=== PATIENT | female | born 1995 | race American Indian/Alaskan Native ===

== ENCOUNTER 2017-09-14 21:47 | Emergency (ER) | payer SELFPAY ==
[2017-09-14 22:50] LABS: Basophils % (Auto) 0.7 % (0.0-1.8); Eosinophils % (Auto) 1.4 % (0.0-4.3); Hematocrit 38.7 % (30.3-42.9); Hemoglobin 12.7 gm/dl (10.1-14.3); Mean Corpuscular HGB Conc 33 % (30-34); Mean Corpuscular Hemoglobin 29 pg (28-32); Mean Corpuscular Volume 87 fl (79-97); Platelet Count 350 K/mm3 (140-440); Red Blood Count 4.45 M/mm3 (3.65-5.03); Red Cell Distribution Width 15.1 % (13.2-15.2); White Blood Count 9.7 K/mm3 (4.5-11.0)
[2017-09-14 23:08] LABS: Alanine Aminotransferase 25 units/L (7-56); Albumin 3.9 g/dL (3.9-5); Albumin/Globulin Ratio 0.8 %; Alkaline Phosphatase 90 units/L (35-129); Anion Gap 17 mmol/L; BUN/Creatinine Ratio 14; Blood Urea Nitrogen 7 mg/dL (7-17); Carbon Dioxide 25 mmol/L (22-30); Chloride 100.5 mmol/L (98-107); Glucose 102 mg/dL (65-100); Lipase 19 units/L (13-60); Potassium 4.2 mmol/L (3.6-5.0); Sodium 138 mmol/L (137-145); Total Protein 8.6 g/dL (6.3-8.2)
[2017-09-14 23:14] LABS: Bilirubin,Urine NEG (Negative); Blood,Urine SM (Negative); Ketones,Urine NEG (Negative); Leukocyte Esterase,Urine TR (Negative); Mucus,Urine FEW /HPF; Nitrite,Urine NEG (Negative); Protein,Urine <15 mg/dL mg/dL (Negative); Urobilinogen,Urine < 2.0 mg/dL (<2.0)
--- NOTE | 2017-09-15 01:05 | Emergency Department Report ---
ED Abdominal Pain HPI - General Chief Complaint: Abdominal Pain Stated Complaint: BACK AND ABD PAIN Time Seen by Provider: 09/15/17 00:59 Source: patient Mode of arrival: Ambulatory Limitations: No Limitations - History of Present Illness Initial Comments: Patient is a 21-year-old female that presents to the emergency room with abdominal pain 10 weeks. Patient also states her LMP was 10 weeks ago. Patient has taken multiple home tests which have been negative. Patient denies diarrhea, chest pain and fever. Patient complains of nausea MD Complaint: abdominal pain -: Gradual, week(s) (over 10 weeks) Location: diffuse, LUQ, RUQ, LLQ, RLQ, epigastric Radiation: none Migration to: no migration Severity: moderate Severity scale (0 -10): 3 Quality: cramping Improves With: vomiting, rest Worsens With: eating, movement Context: other (LMP 10 weeks ago. ) Associated Symptoms: nausea, vomiting - Related Data LMP (females 10-50): other (10 weeks ago) Previous Rx's Medication Instructions Recorded Last Taken Type Pnv95/Ferrous Fumarate/FA 1 each PO QDAY #90 tablet 09/11/14 Unknown Rx [ Vitamins] Promethazine [Phenergan] 25 mg PO Q6H PRN #30 tablet 09/11/14 Unknown Rx Azithromycin [Zithromax ORAL PWDR] 1 gm PO ONCE #2 packet 03/29/15 Unknown Rx metroNIDAZOLE [Flagyl] 500 mg PO BID #10 tablet 03/29/15 Unknown Rx Fluticasone [Flonase] 1 spray NS QDAY #1 bottle 09/21/15 Unknown Rx Penicillin Vk [Veetids TAB] 500 mg PO QID #28 tablet 09/21/15 Unknown Rx Ondansetron [Zofran Odt] 4 mg PO Q8HR PRN #20 tab.rapdis 09/15/17 Unknown Rx Allergies Allergy/AdvReac Type Severity Reaction Status Date / Time No Known Allergies Allergy Unverified 09/11/14 17:03 ED Review of Systems ROS: Stated complaint: BACK AND ABD PAIN Other details as noted in HPI Comment: All other systems reviewed and negative Constitutional: no symptoms reported Eyes: as per HPI ENT: as per HPI Respiratory: no symptoms reported, see HPI Cardiovascular: as per HPI Endocrine: no symptoms reported Gastrointestinal: as per HPI, abdominal pain, nausea, vomiting Musculoskeletal: as per HPI Skin: as per HPI Neurological: as per HPI Psychiatric: as per HPI Hematological/Lymphatic: as per HPI ED Past Medical Hx - Past Medical History Previous Medical History?: Yes Additional medical history: obesity - Surgical History Past Surgical History?: Yes Additional Surgical History: - 2011 - Social History Smoking Status: Never Smoker Substance Use Type: None - Medications Home Medications: Home Medications Medication Instructions Recorded Confirmed Last Taken Type Pnv95/Ferrous Fumarate/FA 1 each PO QDAY #90 tablet 09/11/14 Unknown Rx [ Vitamins] Promethazine [Phenergan] 25 mg PO Q6H PRN #30 tablet 09/11/14 Unknown Rx Azithromycin [Zithromax ORAL PWDR] 1 gm PO ONCE #2 packet 03/29/15 Unknown Rx metroNIDAZOLE [Flagyl] 500 mg PO BID #10 tablet 03/29/15 Unknown Rx Fluticasone [Flonase] 1 spray NS QDAY #1 bottle 09/21/15 Unknown Rx Penicillin Vk [Veetids TAB] 500 mg PO QID #28 tablet 09/21/15 Unknown Rx Ondansetron [Zofran Odt] 4 mg PO Q8HR PRN #20 tab.rapdis 09/15/17 Unknown Rx ED Physical Exam - General Limitations: No Limitations General appearance: alert, in no apparent distress - Head Head exam: Present: atraumatic, normocephalic - Eye Eye exam: Present: normal appearance - ENT ENT exam: Present: mucous membranes moist - Neck Neck exam: Present: normal inspection - Respiratory Respiratory exam: Present: normal lung sounds bilaterally. Absent: respiratory distress - Cardiovascular Cardiovascular Exam: Present: regular rate, normal rhythm. Absent: systolic murmur, diastolic murmur, rubs, gallop - GI/Abdominal GI/Abdominal exam: Present: soft, tenderness (mild generalized tenderness. ), normal bowel sounds - Extremities Exam Extremities exam: Present: normal inspection - Back Exam Back exam: Present: normal inspection - Neurological Exam Neurological exam: Present: alert, oriented X3 - Psychiatric Psychiatric exam: Present: normal affect, normal mood - Skin Skin exam: Present: warm, dry, intact, normal color. Absent: rash ED Course Vital Signs 09/14/17 09/15/17 21:50 02:50 Temperature 98.1 F Pulse Rate 99 H Respiratory 18 18 Rate Blood Pressure 169/85 [Right] O2 Sat by Pulse 100 97 Oximetry ED Medical Decision Making - Lab Data Result diagrams: 09/14/17 22:01 09/14/17 22:01 HCG negative - Radiology Data Radiology results: report reviewed No acute findings on CT scan of abdomen and pelvis. - Medical Decision Making Patient stable for discharge, CT negative and all labs negative - Differential Diagnosis . abd pain. constipation Critical care attestation.: If time is entered above; I have spent that time in minutes in the direct care of this critically ill patient, excluding procedure time. ED Disposition Clinical Impression: Abdominal pain, Amenorrhea, Nausea Disposition: TO HOME OR SELFCARE Is pt being admited?: No Does the pt Need Aspirin: No Condition: Stable Instructions: Abdominal Pain (ED) Additional Instructions: Patient to see TYPING POOL SUPERVISOR and primary care within 3-5 days. Patient to increase water. Patient to take ibuprofen Tylenol when necessary for pain. Patient to return to ED if condition worsens. Prescriptions: Ondansetron [Zofran Odt] 4 mg PO Q8HR PRN #20 tab.rapdis PRN Reason: Nausea And Vomiting Referrals: PRIMARY CARE,MD [Primary Care Provider] - 3-5 Days Time of Disposition: 04:11
--- NOTE | 2017-09-15 03:21 | Cat Scan Report ---
FINAL REPORT EXAM: CT ABDOMEN PELVIS WO CON HISTORY: abd pain TECHNIQUE: Routine axial imaging was obtained of the abdomen and pelvis without oral or IV contrast. Sagittal and coronal reconstructions were reviewed. FINDINGS: The lung bases are clear. Pleural fluid is not seen. The liver, gallbladder, pancreas, spleen, and adrenal glands appear normal. The kidneys show no evidence of stones or hydronephrosis. The bowel loops are normal in caliber and course. The appendix appears normal. Free fluid is not seen. In the pelvis the uterus and bladder appear normal. The bones and soft tissues do not show any acute changes. IMPRESSION: No acute process in the abdomen pelvis.
[2017-09-15 06:01] VITALS: BP 117/73
== END 2017-09-15 04:45 | disposition home or self-care (01) ==
LOC: ED 21:47
DX: N91.2 Amenorrhea, unspecified (principal); R10.84 Generalized abdominal pain; R11.2 Nausea with vomiting, unspecified; E66.9 Obesity, unspecified
CPT/HCPCS: 36415; 74176; 80053; 81001; 83690; 84703; 85025

== ENCOUNTER 2017-10-26 16:14 | Emergency (ER) | payer MEDICAID, OTHER ==
[2017-10-26] MEDS ORDERED: XYLOCAINE 2% INFILTRATI ONE ×2 (19:17→19:18)
[2017-10-26] MEDS ORDERED: XYLOCAINE 1% MPF 5 mL INFILTRATI ONE (19:23)
[2017-10-26] MEDS ORDERED: NORCO 7.5/325 PO ONE (19:23)
[2017-10-26] MEDS ORDERED: ROCEPHIN IM ONE (19:23)
--- NOTE | 2017-10-26 19:28 | Emergency Department Report ---
Abscess Boil HPI - HPI Chief Complaint: Wound/Laceration Stated Complaint: BOIL Time Seen by Provider: 10/26/17 19:14 Duration: 5 Days Location: Sacral/Pilonidal Severity: Mild History: Yes Pain, Yes Purulent Drainage, Yes Previous History, No Fever, No Numbness, No Foreign Body, No Insect Bite HPI: here w boil bet buttox (high cephalic). for several days. also cough and congestion for 4 days. medicaid just kicked in. vss. non ill. non toxic. no fever. ambulatory. taking po Home Medications: Previous Rx's Medication Instructions Recorded Last Taken Type Cephalexin [Keflex] 500 mg PO Q12HR #20 cap 10/26/17 Unknown Rx traMADol [Ultram] 50 mg PO Q6HR PRN #12 tablet 10/26/17 Unknown Rx Allergies/Adverse Reactions: Allergies Allergy/AdvReac Type Severity Reaction Status Date / Time No Known Allergies Allergy Verified 10/26/17 17:49 ED Review of Systems ROS: Stated complaint: BOIL Other details as noted in HPI Comment: All other systems reviewed and negative Respiratory: cough Skin: other (abscess at buttocks fold) ED Past Medical Hx - Past Medical History Previous Medical History?: No Additional medical history: obesity - Surgical History Past Surgical History?: No Additional Surgical History: - 2011 - Social History Smoking Status: Never Smoker Substance Use Type: None - Medications Home Medications: Home Medications Medication Instructions Recorded Confirmed Last Taken Type Cephalexin [Keflex] 500 mg PO Q12HR #20 cap 10/26/17 Unknown Rx traMADol [Ultram] 50 mg PO Q6HR PRN #12 tablet 10/26/17 Unknown Rx ED Abscess Boil Physical Exam - Exam General: Vital signs noted. No distress. Alert and acting appropriately. Size: 3 cm Exam: Yes Tenderness, Yes Fluctuance, Yes Surrounding Cellulites/Erythema, Yes Normal Neurologic Exam, Yes Normal Circulation, No Lymphangitis, No Crepitation , No Heart Murmur Exam: cough I & D Note - I & D Note I & D Note: i/d. lido 2% 2 ml. mod amount serosang drainage ED Course Vital Signs 10/26/17 17:49 Temperature 97.9 F Respiratory 16 Rate Blood Pressure 123/60 O2 Sat by Pulse 97 Oximetry Critical care attestation.: If time is entered above; I have spent that time in minutes in the direct care of this critically ill patient, excluding procedure time. ED Medical Decision Making - Medical Decision Making see note - Differential Diagnosis abscess ED Disposition Clinical Impression: Abscess, URTI (acute upper respiratory infection) Disposition: TO HOME OR SELFCARE Is pt being admited?: No Does the pt Need Aspirin: No Condition: Stable Instructions: Abscess (ED), Upper Respiratory Infection (ED) Additional Instructions: rest fluids motrin or tylenol for fever meds as ordered today epsom salt soaks in bath tub for 20 minutes three times per day follow up with PCP (below) on Monday for a recheck remember these can be recurrent and you may need to see general surg to debrid this in surgery return to ER for fever > 101 that will not come down with motrin or tylenol Referrals: NESTOR MISHRA MD [Staff Physician] - 3-5 Days Time of Disposition: 19:26
[2017-10-26 20:01] VITALS: BP 149/91
== END 2017-10-26 20:08 | disposition home or self-care (01) ==
LOC: ED 16:14
DX: L02.31 Cutaneous abscess of buttock (principal); J06.9 Acute upper respiratory infection, unspecified
CPT/HCPCS: 10060; 96372; 99282; J0696

== ENCOUNTER 2018-05-15 02:26 | Emergency (ER) | payer MEDICAID ==
[2018-05-15] MEDS ORDERED: NACL 0.9% 1000 ML 1,000 ML IV ONE (02:36)
[2018-05-15 03:16] LABS: Basophils # (Auto) 0.1 K/mm3 (0.0-0.1); Basophils % (Auto) 0.8 % (0.0-1.8); Eosinophils # (Auto) 0.1 K/mm3 (0.0-0.4); Eosinophils % (Auto) 1.3 % (0.0-4.3); Hematocrit 35.9 % (30.3-42.9); Lymphocytes % (Auto) 40.1 % (13.4-35.0); Mean Corpuscular HGB Conc 34 % (30-34); Mean Corpuscular Hemoglobin 29 pg (28-32); Mean Corpuscular Volume 85 fl (79-97); Monocytes # (Auto) 0.5 K/mm3 (0.0-0.8); Monocytes % (Auto) 4.9 % (0.0-7.3); Platelet Count 373 K/mm3 (140-440); Red Blood Count 4.23 M/mm3 (3.65-5.03); Red Cell Distribution Width 15.7 % (13.2-15.2)
[2018-05-15 03:21] LABS: Bilirubin,Urine NEG (Negative); Blood,Urine LG (Negative); Color,Urine Yellow (Yellow); Protein,Urine <15 mg/dL mg/dL (Negative); Urobilinogen,Urine < 2.0 mg/dL (<2.0)
[2018-05-15 03:26] LABS: RBC,Urine > 182.0 /HPF (0.0-6.0)
[2018-05-15 03:32] LABS: Alanine Aminotransferase 22 units/L (7-56); Albumin 4.1 g/dL (3.9-5); BUN/Creatinine Ratio 17; Blood Urea Nitrogen 10 mg/dL (7-17); Calcium 9.6 mg/dL (8.4-10.2); Hemolysis Index 3; Lipase 22 units/L (13-60)
[2018-05-15] MEDS ORDERED: TORADOL IM ONE (09:42)
--- NOTE | 2018-05-15 09:45 | Emergency Department Report ---
ED Abdominal Pain HPI - General Chief Complaint: Abdominal Pain Stated Complaint: ABDOMINAL PAIN Time Seen by Provider: 05/15/18 09:37 Source: patient Mode of arrival: Ambulatory Limitations: No Limitations - History of Present Illness Initial Comments: Since 22 years old female with no significant past medical history. Patient presented to the ER complaining of bilateral flank pain and suprapubic pain associated with pressure when she urinated. Patient stated that pain is on and off for a week now. She denied any nausea or vomiting or fever. Patient also stated that she's been having on and off vaginal bleeding for the Ross 3 weeks. MD Complaint: abdominal pain Severity scale (0 -10): 10 - Related Data Previous Rx's Medication Instructions Recorded Last Taken Type Cephalexin [Keflex] 500 mg PO Q12HR #20 cap 10/26/17 Unknown Rx traMADol [Ultram] 50 mg PO Q6HR PRN #12 tablet 10/26/17 Unknown Rx Allergies Allergy/AdvReac Type Severity Reaction Status Date / Time No Known Allergies Allergy Verified 10/26/17 17:49 ED Review of Systems ROS: Stated complaint: ABDOMINAL PAIN Other details as noted in HPI Comment: All other systems reviewed and negative Constitutional: denies: chills, fever Respiratory: denies: cough Cardiovascular: denies: chest pain, palpitations Endocrine: denies: excessive sweating Gastrointestinal: abdominal pain. denies: nausea, vomiting, diarrhea, constipation, hematemesis, melena, hematochezia Genitourinary: urgency, dysuria, frequency, hematuria, abnormal menses. denies : discharge Neurological: denies: headache, weakness, numbness, paresthesias, confusion, abnormal gait ED Past Medical Hx - Past Medical History Additional medical history: obesity - Surgical History Additional Surgical History: - 2012 - Social History Smoking Status: Never Smoker Substance Use Type: None - Medications Home Medications: Home Medications Medication Instructions Recorded Confirmed Last Taken Type Cephalexin [Keflex] 500 mg PO Q12HR #20 cap 10/26/17 Unknown Rx traMADol [Ultram] 50 mg PO Q6HR PRN #12 tablet 10/26/17 Unknown Rx ED Physical Exam - General Limitations: No Limitations General appearance: alert, in no apparent distress - Head Head exam: Present: atraumatic, normocephalic, normal inspection - ENT ENT exam: Present: normal exam, normal orophraynx, mucous membranes moist - Neck Neck exam: Present: normal inspection, full ROM. Absent: tenderness - Respiratory Respiratory exam: Present: normal lung sounds bilaterally. Absent: respiratory distress, wheezes, rales, rhonchi, stridor - Cardiovascular Cardiovascular Exam: Present: regular rate, normal rhythm, normal heart sounds - GI/Abdominal GI/Abdominal exam: Present: soft, normal bowel sounds. Absent: distended, tenderness, guarding, rebound, rigid, organomegaly, mass, bruit, pulsatile mass , hernia - Extremities Exam Extremities exam: Present: normal inspection, full ROM, normal capillary refill - Back Exam Back exam: Present: normal inspection, full ROM. Absent: tenderness, CVA tenderness (R), CVA tenderness (L), muscle spasm, paraspinal tenderness, vertebral tenderness - Neurological Exam Neurological exam: Present: alert, oriented X3, CN II-XII intact, normal gait, reflexes normal - Skin Skin exam: Present: warm, intact, normal color ED Course Vital Signs 05/15/18 05/15/18 05/15/18 02:31 08:55 10:14 Temperature 98.5 F 98.1 F Pulse Rate 102 H 82 Respiratory 16 20 18 Rate Blood Pressure 138/67 101/56 O2 Sat by Pulse 99 98 99 Oximetry ED Medical Decision Making - Lab Data Result diagrams: 05/15/18 03:00 05/15/18 03:00 - Radiology Data Radiology results: report reviewed Referring Physician: LAUREL VALLES Patient Name: DAI ANTUNEZ Date of : 1995 Sex: Female Report Date: 2018-05-15 Report Status: Finalized Findings [facility] [address] [place] [address] Cat Scan Report Signed Patient: DAI ANTUNEZ MR#: [id number] : 1995 Acct:[id number] Age/Sex: 22 / F ADM Date: 05/15/18 Loc: ED Attending Dr: Ordering Physician: LAUREL VALLES Date of Service: 05/15/18 Procedure(s): CT abdomen pelvis wo con Accession Number(s): [id number] cc: LAUREL VALLES CT ABDOMEN PELVIS WITHOUT CONTRAST: HISTORY: Abdominal pain, bilateral flank pain. COMPARISON: 09/15/17. TECHNIQUE: Helical CT in 1.25mm intervals without IV contrast. Sagittal and coronal reconstructions. FINDINGS: Lung bases: Normal. Liver: Normal. Biliary system: Normal. Pancreas: Normal. Spleen: Normal. Kidneys/ureters/bladder: Within normal limits. No convincing nephrolithiasis is appreciated. Adrenal glands: Normal. Aorta: Normal. Intestines: Normal. Appendix: Normal. Pelvic viscera: Normal. Ascites: None. Adenopathy: None. Musculoskeletal: Intact. Mild pseudarthrosis on the left side of L5 and the left superior sacrum is unchanged. IMPRESSION: Unremarkable CT scan of the abdomen and pelvis without contrast. No acute process noted. Transcribed By: TTR Dictated By: SAI MONTAÑO JR, MD Electronically Authenticated By: SAI MONTAÑO JR, MD Signed Date/Time: 05/15/18 1017 DD/ 1015 TD/TT: 05/15/18 1017 Critical care attestation.: If time is entered above; I have spent that time in minutes in the direct care of this critically ill patient, excluding procedure time. ED Disposition Clinical Impression: Abdominal pain, Dysuria Disposition: DC-01 TO HOME OR SELFCARE Is pt being admited?: No Condition: Stable Instructions: Abdominal Pain (ED), Dysuria (ED) Referrals: ALIVIA MONTERROSO MD [Primary Care Provider] - 3-5 Days
[2018-05-15] MEDS ORDERED: ZOFRAN ONE (10:40)
--- NOTE | 2018-05-15 10:40 | Cat Scan Report ---
CT ABDOMEN PELVIS WITHOUT CONTRAST: HISTORY: Abdominal pain, bilateral flank pain. COMPARISON: 09/15/17. TECHNIQUE: Helical CT in 1.25mm intervals without IV contrast. Sagittal and coronal reconstructions. FINDINGS: Lung bases: Normal. Liver: Normal. Biliary system: Normal. Pancreas: Normal. Spleen: Normal. Kidneys/ureters/bladder: Within normal limits. No convincing nephrolithiasis is appreciated. Adrenal glands: Normal. Aorta: Normal. Intestines: Normal. Appendix: Normal. Pelvic viscera: Normal. Ascites: None. Adenopathy: None. Musculoskeletal: Intact. Mild pseudarthrosis on the left side of L5 and the left superior sacrum is unchanged. IMPRESSION: Unremarkable CT scan of the abdomen and pelvis without contrast. No acute process noted.
[2018-05-15] MEDS ORDERED: ZOFRAN IM ONE (10:52)
[2018-05-15 12:09] VITALS: BP 132/72
== END 2018-05-15 12:07 | disposition home or self-care (01) ==
LOC: ED 02:26
DX: R10.30 Lower abdominal pain, unspecified (principal); R30.0 Dysuria
CPT/HCPCS: 36415; 74176; 80053; 81001; 83690; 84703; 85025; 96372; 99284; J1885; J2405

== ENCOUNTER 2018-06-16 03:19 | Emergency (ER) | payer MEDICAID ==
[2018-06-16] MEDS ORDERED: NORCO 5/325 PO ONE (07:05)
[2018-06-16 08:21] LABS: Basophils # (Auto) 0.1 K/mm3 (0.0-0.1); Eosinophils # (Auto) 0.2 K/mm3 (0.0-0.4); Eosinophils % (Auto) 1.6 % (0.0-4.3); Hematocrit 33.7 % (30.3-42.9); Hemoglobin 11.1 gm/dl (10.1-14.3); Lymphocytes # (Auto) 4.1 K/mm3 (1.2-5.4); Lymphocytes % (Auto) 36.1 % (13.4-35.0); Mean Corpuscular HGB Conc 33 % (30-34); Mean Corpuscular Hemoglobin 29 pg (28-32); Mean Corpuscular Volume 86 fl (79-97); Monocytes # (Auto) 0.4 K/mm3 (0.0-0.8); Monocytes % (Auto) 3.7 % (0.0-7.3); Platelet Count 392 K/mm3 (140-440); Red Blood Count 3.89 M/mm3 (3.65-5.03); Red Cell Distribution Width 16.1 % (13.2-15.2)
[2018-06-16 08:32] LABS: BUN/Creatinine Ratio 22; Blood Urea Nitrogen 13 mg/dL (7-17); Calcium 9.6 mg/dL (8.4-10.2); Hemolysis Index 49
[2018-06-16 09:28] LABS: Bilirubin,Urine NEG (Negative); Blood,Urine LG (Negative); Color,Urine Yellow (Yellow); Mucus,Urine 1+ /HPF; Urobilinogen,Urine < 2.0 mg/dL (<2.0)
[2018-06-16 09:33] LABS: RBC,Urine > 182.0 /HPF (0.0-6.0)
[2018-06-16 09:35] LABS: HCG Qualitative,Urine Negative (Negative)
--- NOTE | 2018-06-16 10:14 | Emergency Department Report ---
ED General Adult HPI - General Chief complaint: Abdominal Pain Stated complaint: PELVIC PAIN Time Seen by Provider: 06/16/18 06:59 Source: patient Mode of arrival: Ambulatory Limitations: No Limitations - History of Present Illness Initial comments: 22-year-old female who brought her child in for protracted vomiting. Her child is autistic. [facility] ultimately was [facility]. Since she was bringing her child she decided to come to the emergency department. She states that she has had bilateral pelvic pain for well more than a month. She states she's not been able to get in to see her SHAKER REPAIRER doctor. She doesn't report any acute change. She states that she has had intermittent bleeding for over a month. She does not report fever chills or any dysuria or discharge. She was seen at this facility proximally one month ago. I do note that at that time in April she had a CT of her abdomen and pelvis which was normal. She was found to have hematuria which I presume was likely attributed to menses. -: month(s) Severity scale (0 -10): 4 Quality: aching Consistency: intermittent Improves with: none Worsens with: none Associated Symptoms: denies other symptoms Treatments Prior to Arrival: none - Related Data Previous Rx's Medication Instructions Recorded Last Taken Type cephALEXin [Keflex] 500 mg PO Q12HR #20 cap 10/26/17 Unknown Rx traMADol [Ultram] 50 mg PO Q6HR PRN #12 tablet 10/26/17 Unknown Rx Ciprofloxacin HCl [Ciprofloxacin 500 mg PO Q12H #14 tab 05/15/18 Unknown Rx TAB] Ondansetron [Zofran Odt] 4 mg PO Q8HR PRN #14 tab.rapdis 05/15/18 Unknown Rx traMADol [Ultram] 50 mg PO Q6HR PRN #14 tablet 05/15/18 Unknown Rx Nitrofurantoin Monohyd/M-Cryst 100 mg PO BID #14 capsule 06/16/18 Unknown Rx [Macrobid 100 mg Capsule] traMADol [Ultram 50 MG tab] 50 mg PO Q6HR PRN #10 tablet 06/16/18 Unknown Rx Allergies Allergy/AdvReac Type Severity Reaction Status Date / Time No Known Allergies Allergy Verified 10/26/17 17:49 ED Review of Systems ROS: Stated complaint: PELVIC PAIN Other details as noted in HPI Constitutional: denies: chills, fever Eyes: denies: eye pain, eye discharge, vision change ENT: denies: ear pain, throat pain Respiratory: denies: cough, shortness of breath, wheezing Cardiovascular: denies: chest pain, palpitations Endocrine: no symptoms reported Gastrointestinal: denies: abdominal pain, nausea, diarrhea Genitourinary: as per HPI. denies: urgency, dysuria, discharge Musculoskeletal: denies: back pain, joint swelling, arthralgia Skin: denies: rash, lesions Neurological: denies: headache, weakness, paresthesias Psychiatric: denies: anxiety, depression Hematological/Lymphatic: denies: easy bleeding, easy bruising ED Past Medical Hx - Past Medical History Previous Medical History?: No Additional medical history: obesity - Surgical History Past Surgical History?: Yes Additional Surgical History: - 2012 - Social History Smoking Status: Never Smoker Substance Use Type: None - Medications Home Medications: Home Medications Medication Instructions Recorded Confirmed Last Taken Type cephALEXin [Keflex] 500 mg PO Q12HR #20 cap 10/26/17 Unknown Rx traMADol [Ultram] 50 mg PO Q6HR PRN #12 tablet 10/26/17 Unknown Rx Ciprofloxacin HCl [Ciprofloxacin 500 mg PO Q12H #14 tab 05/15/18 Unknown Rx TAB] Ondansetron [Zofran Odt] 4 mg PO Q8HR PRN #14 tab.rapdis 05/15/18 Unknown Rx traMADol [Ultram] 50 mg PO Q6HR PRN #14 tablet 05/15/18 Unknown Rx Nitrofurantoin Monohyd/M-Cryst 100 mg PO BID #14 capsule 06/16/18 Unknown Rx [Macrobid 100 mg Capsule] traMADol [Ultram 50 MG tab] 50 mg PO Q6HR PRN #10 tablet 06/16/18 Unknown Rx ED Physical Exam - General Limitations: No Limitations General appearance: alert, in no apparent distress - Head Head exam: Present: atraumatic, normocephalic - Eye Eye exam: Present: normal appearance. Absent: scleral icterus - ENT ENT exam: Present: mucous membranes moist - Neck Neck exam: Present: normal inspection - Respiratory Respiratory exam: Present: normal lung sounds bilaterally. Absent: respiratory distress - Cardiovascular Cardiovascular Exam: Present: regular rate, normal rhythm. Absent: systolic murmur, diastolic murmur, rubs, gallop - GI/Abdominal GI/Abdominal exam: Present: soft, tenderness (some discomfort to palpation in the very lower aspect of the bilateral lower quadrants), normal bowel sounds. Absent: distended, guarding, rebound, rigid - Extremities Exam Extremities exam: Present: normal inspection - Back Exam Back exam: Present: normal inspection. Absent: CVA tenderness (R), CVA tenderness (L), muscle spasm, paraspinal tenderness, vertebral tenderness - Neurological Exam Neurological exam: Present: alert, oriented X3, CN II-XII intact. Absent: motor sensory deficit - Psychiatric Psychiatric exam: Present: normal affect, normal mood - Skin Skin exam: Present: warm, dry, intact, normal color. Absent: rash ED Course Vital Signs 06/16/18 06/16/18 06/16/18 03:36 07:09 07:14 Temperature 98.3 F Pulse Rate 88 Respiratory 18 20 20 Rate Blood Pressure 134/58 O2 Sat by Pulse 100 98 Oximetry - Reevaluation(s) Reevaluation #1: Patient arrest. There is comfortably. She did not complain of any substantial pain in the emergency department. She is referred back to EXTRUSION SUPERVISOR. A urine is cultured. She was started on Macrobid. 06/16/18 10:17 ED Medical Decision Making - Lab Data Result diagrams: 06/16/18 08:01 06/16/18 08:01 Critical care attestation.: If time is entered above; I have spent that time in minutes in the direct care of this critically ill patient, excluding procedure time. ED Disposition Clinical Impression: Dysfunctional uterine bleeding UTI (urinary tract infection) Qualifiers: Urinary tract infection type: site unspecified Hematuria presence: with hematuria Qualified Code(s): N39.0 - Urinary tract infection, site not specified Disposition: TO HOME OR SELFCARE Is pt being admited?: No Does the pt Need Aspirin: No Condition: Stable Instructions: Dysfunctional Uterine Bleeding (ED), Urinary Tract Infection in Women (ED), Chronic Pelvic Pain in Women (ED), Abdominal Pain (ED) Additional Instructions: It is uncertain as to whether or not you have a urinary tract infection. In such cases we will do a urine culture which will be ready in 3 days. I have begun an antibiotic. He should follow up with your fixing carpenter on this and your irregular periods and in general. To the emergency department fever chills or any acute pain or problem. Prescriptions: Nitrofurantoin Monohyd/M-Cryst [Macrobid 100 mg Capsule] 100 mg PO BID #14 capsule traMADol [Ultram 50 MG tab] 50 mg PO Q6HR PRN #10 tablet PRN Reason: Pain Referrals: usual, EXTRUSION SUPERVISOR [Other] - 3-5 Days PRIMARY CARE,MD [Primary Care Provider] - 2-3 Days Time of Disposition: 10:17
[2018-06-16 11:34] VITALS: BP 130/80
== END 2018-06-16 10:40 | disposition home or self-care (01) ==
LOC: ED 03:19
DX: N39.0 Urinary tract infection, site not specified (principal); N93.8 Other specified abnormal uterine and vaginal bleeding
CPT/HCPCS: 36415; 80048; 81001; 81025; 85025; 87086; 99283

== ENCOUNTER 2019-03-25 20:36 | Emergency (ER) | payer MEDICAID, OTHER ==
--- NOTE | 2019-03-25 21:19 | Emergency Department Report ---
Blank Doc - Documentation Documentation: This is a 23-year-old female that presents with right elbow pain. Patient den ies any shoulder pain or left arm pain. Denies any other complaints or injuries. This initial assessment/diagnostic orders/clinical plan/treatment(s) is/are subject to change based on patient's health status, clinical progression and re- assessment by fellow clinical providers in the ED. Further treatment and workup at subsequent clinical providers discretion. Patient/guardians urged not to rhiannon pe from the ED as their condition may be serious if not clinically assessed and managed. Initial orders include: 1- Patient sent to [facility] for further evaluation and treatment 2- xray
[2019-03-25 21:21] VITALS: BP 150/85
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
[2019-03-25] MEDS ORDERED: TYLENOL PO ONE (22:39)
[2019-03-25] MEDS ORDERED: IBUPROFEN PO ONE (22:39)
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
== END 2019-03-25 23:37 | disposition home or self-care (01) ==
LOC: ED 20:36
DX: S56.911A Strain of unspecified muscles, fascia and tendons at forearm level, right arm, initial encounter (principal); S53.401A Unspecified sprain of right elbow, initial encounter; E66.01 Morbid (severe) obesity due to excess calories; Z68.43 Body mass index [BMI] 50.0-59.9, adult; V89.2XXA Person injured in unspecified motor-vehicle accident, traffic, initial encounter; Y93.89 Activity, other specified; Y92.488 Other paved roadways as the place of occurrence of the external cause; Y99.8 Other external cause status
CPT/HCPCS: 99283

== ENCOUNTER 2019-10-08 09:52 | Emergency (ER) | payer MEDICAID ==
[2019-10-08 10:19] VITALS: BP 122/75
--- NOTE | 2019-10-08 11:16 | XRay Report ---
Right ankle-3 views Right foot-3 views INDICATION: Right ankle pain and swelling. COMPARISON: None. IMPRESSION: Mild soft tissue swelling about the ankle and dorsum of the forefoot with no acute fract ure or malalignment identified in the ankle or foot. Mild enthesopathic change at the calcaneal tuber osity. No significant DJD. Signer Name: Dallas Morales MD Signed: 10/08/2019 11:04 AM Workstation Name: [id number]
--- NOTE | 2019-10-08 11:55 | XRay Report ---
RIGHT KNEE 3 VIEWS INDICATION / CLINICAL INFORMATION: pain after fall. COMPARISON: None available. FINDINGS: No fracture or other skeletal abnormality. No evidence of hemarthrosis or significant joint effusion. Signer Name: Isidro Rodriguez MD Signed: 10/08/2019 11:50 AM Workstation Name: [id number]
[2019-10-08] MEDS ORDERED: IBUPROFEN 800 MG TAB PO ONE (12:13)
--- NOTE | 2019-10-08 12:25 | Emergency Department Report ---
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 Patient states she has pain in the right ankle foot and lateral knee. Patient states that there was no head injury or loss of consciousness. Patient states she cannot bear weight secondary to pain. Patient's pain is a 8 out 10 in severity and is worse with movement bear weight and is better with rest. Severity scale (0 -10): 10 - Related Data Previous Rx's Medication Instructions Recorded Last Taken Type cephALEXin [Keflex] 500 mg PO Q12HR #20 cap 10/26/17 Unknown Rx traMADoL [Ultram] 50 mg PO Q6HR PRN #12 tablet 10/26/17 Unknown Rx Ciprofloxacin HCl [Ciprofloxacin 500 mg PO Q12H #14 tab 05/15/18 Unknown Rx TAB] Ondansetron [Zofran Odt] 4 mg PO Q8HR PRN #14 tab.rapdis 05/15/18 Unknown Rx traMADoL [Ultram] 50 mg PO Q6HR PRN #14 tablet 05/15/18 Unknown Rx Nitrofurantoin Monohyd/M-Cryst 100 mg PO BID #14 capsule 06/16/18 Unknown Rx [Macrobid 100 mg Capsule] traMADoL [Ultram 50 MG tab] 50 mg PO Q6HR PRN #10 tablet 06/16/18 Unknown Rx Cyclobenzaprine [Flexeril] 10 mg PO Q8H PRN #15 tablet 03/25/19 Unknown Rx Ibuprofen [Motrin] 800 mg PO Q8HR PRN #20 tablet 03/25/19 Unknown Rx Ibuprofen [Motrin 800 MG tab] 800 mg PO Q8HR PRN #10 tablet 10/08/19 Unknown Rx traMADoL [Ultram] 50 mg PO Q6HR PRN #12 tablet 10/08/19 Unknown Rx Allergies Allergy/AdvReac Type Severity Reaction Status Date / Time No Known Allergies Allergy Verified 10/26/17 17:49 ED Review of Systems ROS: Stated complaint: RT ANKLE INJURY Other details as noted in HPI Comment: All other systems reviewed and negative ED Past Medical Hx - Past Medical History Previous Medical History?: No Additional medical history: obesity - Surgical History Past Surgical History?: Yes Additional Surgical History: - 2012 - Social History Smoking Status: Never Smoker Substance Use Type: None - Medications Home Medications: Home Medications Medication Instructions Recorded Confirmed Last Taken Type cephALEXin [Keflex] 500 mg PO Q12HR #20 cap 10/26/17 Unknown Rx traMADoL [Ultram] 50 mg PO Q6HR PRN #12 tablet 10/26/17 Unknown Rx Ciprofloxacin HCl [Ciprofloxacin 500 mg PO Q12H #14 tab 05/15/18 Unknown Rx TAB] Ondansetron [Zofran Odt] 4 mg PO Q8HR PRN #14 tab.rapdis 05/15/18 Unknown Rx traMADoL [Ultram] 50 mg PO Q6HR PRN #14 tablet 05/15/18 Unknown Rx Nitrofurantoin Monohyd/M-Cryst 100 mg PO BID #14 capsule 06/16/18 Unknown Rx [Macrobid 100 mg Capsule] traMADoL [Ultram 50 MG tab] 50 mg PO Q6HR PRN #10 tablet 06/16/18 Unknown Rx Cyclobenzaprine [Flexeril] 10 mg PO Q8H PRN #15 tablet 03/25/19 Unknown Rx Ibuprofen [Motrin] 800 mg PO Q8HR PRN #20 tablet 03/25/19 Unknown Rx Ibuprofen [Motrin 800 MG tab] 800 mg PO Q8HR PRN #10 tablet 10/08/19 Unknown Rx traMADoL [Ultram] 50 mg PO Q6HR PRN #12 tablet 10/08/19 Unknown Rx ED Physical Exam - General Limitations: No Limitations General appearance: alert, in no apparent distress - Head Head exam: Present: atraumatic, normocephalic - Eye Eye exam: Present: normal appearance, PERRL, EOMI - ENT ENT exam: Present: mucous membranes moist - Neck Neck exam: Present: normal inspection - Respiratory Respiratory exam: Present: normal lung sounds bilaterally. Absent: respiratory distress, wheezes, rales, rhonchi - Cardiovascular Cardiovascular Exam: Present: regular rate, normal rhythm. Absent: systolic murmur, diastolic murmur, rubs, gallop - GI/Abdominal GI/Abdominal exam: Present: soft, normal bowel sounds. Absent: distended, tenderness, guarding, rebound - Extremities Exam Extremities exam: Present: normal inspection - Expanded Lower Extremity Exam Right Hip exam: Present: normal inspection, full ROM Upper Leg exam: Present: normal inspection, full ROM Knee exam: Present: normal inspection, tenderness (patient has some tenderness to the area of the occipital fibula), abrasion Lower Leg exam: Present: normal inspection Ankle exam: Present: tenderness, swelling. Absent: full ROM Neuro vascular tendon exam: Present: no vascular compromise - Back Exam Back exam: Present: normal inspection - Neurological Exam Neurological exam: Present: alert, oriented X3 - Psychiatric Psychiatric exam: Present: normal affect, normal mood - Skin Skin exam: Present: warm, dry, intact, normal color. Absent: rash ED Course Vital Signs 10/08/19 10:17 Temperature 97.6 F Pulse Rate 107 H Respiratory 16 Rate Blood Pressure 122/75 O2 Sat by Pulse 96 Oximetry ED Medical Decision Making - Radiology Data X-ray of the right foot, ankle and knee showed no acute fracture. There is soft tissue swelling present at the ankle. - Medical Decision Making Patient placed in an air stirrup for her right ankle and her knee is been Dominick wrap. Patient be discharged home with follow with orthopedics as needed. Critical care attestation.: If time is entered above; I have spent that time in minutes in the direct care of this critically ill patient, excluding procedure time. ED Disposition Clinical Impression: Ankle sprain Qualifiers: Encounter type: initial encounter Involved ligament of ankle: unspecified ligament Laterality: right Qualified Code(s): S93.401A - Sprain of unspecified ligament of right ankle, initial encounter Knee contusion Qualifiers: Encounter type: initial encounter Laterality: right Qualified Code(s): S80.01XA - Contusion of right knee, initial encounter Fall Qualifiers: Encounter type: initial encounter Qualified Code(s): W19.XXXA - Unspecified fall, initial encounter Disposition: DC-01 TO HOME OR SELFCARE Is pt being admited?: No Does the pt Need Aspirin: No Condition: Stable Instructions: Ankle Sprain (ED) Referrals: NEGIN ISSA MD [Staff Physician] - 3-5 Days Time of Disposition: 12:25
== END 2019-10-08 12:25 | disposition home or self-care (01) ==
LOC: ED 09:52
DX: S93.401A Sprain of unspecified ligament of right ankle, initial encounter (principal); S80.01XA Contusion of right knee, initial encounter; E66.9 Obesity, unspecified; Z98.890 Other specified postprocedural states; Z79.1 Long term (current) use of non-steroidal anti-inflammatories (NSAID); Z79.899 Other long term (current) drug therapy; W10.8XXA Fall (on) (from) other stairs and steps, initial encounter; Y93.89 Activity, other specified; Y92.89 Other specified places as the place of occurrence of the external cause; Y99.8 Other external cause status

== ENCOUNTER 2020-01-01 09:54 | Emergency (ER) | payer MEDICAID ==
--- NOTE | 2020-01-01 13:34 | Emergency Department Report ---
ED General Adult HPI - General Chief complaint: Chest Pain Stated complaint: CHEST PAIN/BACK PAIN Time Seen by Provider: 01/01/20 12:36 Source: patient Mode of arrival: Ambulatory Limitations: No Limitations - History of Present Illness Initial comments: This pleasant 24-year-old female presents emerged department with chief complaint of chest and upper back pain that started yesterday. Patient denies any injuries. Patient reports gradual onset of pain followed by more increased pain when she lifts anything. Pain is aggravated by movement of the right arm. She reports that is generalized across the whole chest. She states the pain is worse when she sneezes, coughs or moves. She denies any known past medical history, current medication use or known allergies to medications. She specifically denies any history of hypertension, diabetes, hyperlipidemia. She denies smoking or illicit drug use such as cocaine or methamphetamines. She den ies any history of thromboembolic disease. She does take oral control. She denies any recent immobilization or travel. She does report she has had a cough for the past 2 to 3 days. She denies fevers, chills, night sweats, headache, dizziness, blurry vision, nausea, vomiting, diarrhea, shortness of breath, hemoptysis, lower extremity edema or pain or any other associated symptoms. - Related Data Previous Rx's Medication Instructions Recorded Last Taken Type cephALEXin [Keflex] 500 mg PO Q12HR #20 cap 10/26/17 Unknown Rx traMADoL [Ultram] 50 mg PO Q6HR PRN #12 tablet 10/26/17 Unknown Rx Ciprofloxacin HCl [Ciprofloxacin 500 mg PO Q12H #14 tab 05/15/18 Unknown Rx TAB] Ondansetron [Zofran Odt] 4 mg PO Q8HR PRN #14 tab.rapdis 05/15/18 Unknown Rx traMADoL [Ultram] 50 mg PO Q6HR PRN #14 tablet 05/15/18 Unknown Rx Nitrofurantoin Monohyd/M-Cryst 100 mg PO BID #14 capsule 06/16/18 Unknown Rx [Macrobid 100 mg Capsule] traMADoL [Ultram 50 MG tab] 50 mg PO Q6HR PRN #10 tablet 06/16/18 Unknown Rx Cyclobenzaprine [Flexeril] 10 mg PO Q8H PRN #15 tablet 03/25/19 Unknown Rx Ibuprofen [Motrin] 800 mg PO Q8HR PRN #20 tablet 03/25/19 Unknown Rx Ibuprofen [Motrin 800 MG tab] 800 mg PO Q8HR PRN #10 tablet 10/08/19 Unknown Rx traMADoL [Ultram] 50 mg PO Q6HR PRN #12 tablet 10/08/19 Unknown Rx Ibuprofen [Motrin 800 MG tab] 800 mg PO Q8HR PRN #30 tablet 01/01/20 Unknown Rx methylPREDNISolone [Medrol 4MG 4 mg PO ONCE 1 Days #1 tab.ds.pk 01/01/20 Unknown Rx DOSEPAK (21 tabs)] Allergies Allergy/AdvReac Type Severity Reaction Status Date / Time No Known Allergies Allergy Verified 10/26/17 17:49 ED Review of Systems ROS: Stated complaint: CHEST PAIN/BACK PAIN Other details as noted in HPI Comment: All other systems reviewed and negative Constitutional: denies: chills, fever Eyes: denies: eye pain, eye discharge, vision change ENT: denies: ear pain, throat pain Respiratory: denies: cough, shortness of breath, wheezing Cardiovascular: as per HPI, chest pain. denies: palpitations Endocrine: no symptoms reported Gastrointestinal: denies: abdominal pain, nausea, diarrhea Genitourinary: denies: urgency, dysuria, discharge Musculoskeletal: as per HPI, back pain. denies: joint swelling, arthralgia Skin: denies: rash, lesions Neurological: denies: headache, weakness, paresthesias Psychiatric: denies: anxiety, depression Hematological/Lymphatic: denies: easy bleeding, easy bruising ED Past Medical Hx - Past Medical History Previous Medical History?: No Additional medical history: obesity - Surgical History Past Surgical History?: Yes Additional Surgical History: - 2012 - Social History Smoking Status: Never Smoker Substance Use Type: None - Medications Home Medications: Home Medications Medication Instructions Recorded Confirmed Last Taken Type cephALEXin [Keflex] 500 mg PO Q12HR #20 cap 10/26/17 Unknown Rx traMADoL [Ultram] 50 mg PO Q6HR PRN #12 tablet 10/26/17 Unknown Rx Ciprofloxacin HCl [Ciprofloxacin 500 mg PO Q12H #14 tab 05/15/18 Unknown Rx TAB] Ondansetron [Zofran Odt] 4 mg PO Q8HR PRN #14 tab.rapdis 05/15/18 Unknown Rx traMADoL [Ultram] 50 mg PO Q6HR PRN #14 tablet 05/15/18 Unknown Rx Nitrofurantoin Monohyd/M-Cryst 100 mg PO BID #14 capsule 06/16/18 Unknown Rx [Macrobid 100 mg Capsule] traMADoL [Ultram 50 MG tab] 50 mg PO Q6HR PRN #10 tablet 06/16/18 Unknown Rx Cyclobenzaprine [Flexeril] 10 mg PO Q8H PRN #15 tablet 03/25/19 Unknown Rx Ibuprofen [Motrin] 800 mg PO Q8HR PRN #20 tablet 03/25/19 Unknown Rx Ibuprofen [Motrin 800 MG tab] 800 mg PO Q8HR PRN #10 tablet 10/08/19 Unknown Rx traMADoL [Ultram] 50 mg PO Q6HR PRN #12 tablet 10/08/19 Unknown Rx Ibuprofen [Motrin 800 MG tab] 800 mg PO Q8HR PRN #30 tablet 01/01/20 Unknown Rx methylPREDNISolone [Medrol 4MG 4 mg PO ONCE 1 Days #1 tab.ds.pk 01/01/20 Unknown Rx DOSEPAK (21 tabs)] ED Physical Exam - General Limitations: No Limitations General appearance: alert, in no apparent distress - Head Head exam: Present: atraumatic, normocephalic - Eye Eye exam: Present: normal appearance, PERRL, EOMI Pupils: Present: normal accommodation - ENT ENT exam: Present: normal exam, normal orophraynx, mucous membranes moist, TM's normal bilaterally - Neck Neck exam: Present: normal inspection, full ROM. Absent: tenderness, meningismus - Respiratory Respiratory exam: Present: normal lung sounds bilaterally, chest wall tenderness (Tenderness across the entire chest wall. No deformity.). Absent: respiratory distress, wheezes, rhonchi, stridor, accessory muscle use - Cardiovascular Cardiovascular Exam: Present: regular rate, normal rhythm, normal heart sounds. Absent: systolic murmur, diastolic murmur, rubs, gallop - GI/Abdominal GI/Abdominal exam: Present: soft, normal bowel sounds. Absent: distended, tenderness, guarding, rebound, rigid - Extremities Exam Extremities exam: Present: normal inspection, full ROM. Absent: tenderness, calf tenderness (Negative posterior calf tenderness, negative Homans sign, no palpable cords, normal DP and PT pulses bilaterally.) - Back Exam Back exam: Present: normal inspection, full ROM, tenderness (Thoracic paraspinal tenderness with no midline tenderness. Able to fully extend and flex without pain), paraspinal tenderness. Absent: CVA tenderness (R), CVA tenderness (L), muscle spasm - Neurological Exam Neurological exam: Present: alert, oriented X3, normal gait - Psychiatric Psychiatric exam: Present: normal affect, normal mood - Skin Skin exam: Present: warm, dry, intact, normal color. Absent: rash ED Course Vital Signs 01/01/20 01/01/20 01/01/20 10:29 10:38 15:19 Temperature 97.3 F L 97.8 F Pulse Rate 83 69 84 Respiratory 18 18 Rate Blood Pressure 131/87 107/76 108/62 O2 Sat by Pulse 96 99 94 Oximetry ED Medical Decision Making - EKG Data -: EKG Interpreted by Me EKG shows normal: sinus rhythm Rate: normal - EKG Data When compared to previous EKG there are: previous EKG unavailable 01/01/20 14:03 Normal sinus rhythm with a rate of 87, no acute ST or T wave abnormalities, no STEMI, normal axis, normal intervals. Isolated T wave inversion in lead III. No ectopy. - Radiology Data Radiology results: report reviewed interpreted by me: XRay Report Signed Patient: DAI ANTUNEZ MR#: [id number] : 1995 Acct:[id number] Age/Sex: 24 / F ADM Date: 01/01/20 Loc: ED Attending Dr: Ordering Physician: CECILIA BUSTILLO Date of Service: 01/01/20 Procedure(s): XR chest routine 2V Accession Number(s): [id number] cc: CECILIA BUSTILLO Fluoro Time In Minutes: CHEST 2 VIEWS INDICATION: MAIN: chest pain, cough; Pt. c/o sharp CP and aches to upper chest and shoulders, worse with movement. . COMPARISON: None. FINDINGS: Support devices: None. Heart: Within normal limits. Pulmonary vasculature: Normal. Lungs/pleura: No acute air space or interstitial disease. No pneumothorax. Additional findings: None. IMPRESSION: 1. No acute findings. Signer Name: Melchor Jarvis MD Signed: 01/01/2020 4:31 PM Workstation Name: [id number] Transcribed By: REF Dictated By: MELCHOR JARVIS MD Electronically Authenticated By: MELCHOR JARVIS MD Signed Date/Time: 01/01/20 1631 - Medical Decision Making Patient is nontoxic in no acute distress. Vitals are stable. Patient is PERC negative and a low risk by Wells criteria making PE unlikely. EKG was unremarkable and the patient was a low risk for ACS making this unlikely. X-ray was negative for pneumothorax or pneumonia. Patient had no widening of the mediastinum on x-ray, equal radial pulses bilaterally no tearing or ripping pain to the back making an acute aortic dissection unlikely. Patient's pain was very reproducible with movement of her arm as well as palpation of the chest wall aspect this is likely musculoskeletal. Recommended anti-inflammatories and follow-up with her primary doctor. Return to emerge department any changing or worsening symptoms. She verbalized understanding of the diagnosis, treatment plan and follow-up instructions all of her questions were answered. - Differential Diagnosis chest wall pain, PE, ACS, pneumothorax, Pneumonia Critical care attestation.: If time is entered above; I have spent that time in minutes in the direct care of this critically ill patient, excluding procedure time. ED Disposition Clinical Impression: Nonspecific chest pain Disposition: DC-01 TO HOME OR SELFCARE Is pt being admited?: No Condition: Stable Instructions: Chest Pain (ED), Costochondritis (ED) Prescriptions: methylPREDNISolone [Medrol 4MG DOSEPAK (21 tabs)] 4 mg PO ONCE 1 Days #1 tab.ds.pk Ibuprofen [Motrin 800 MG tab] 800 mg PO Q8HR PRN #30 tablet PRN Reason: Pain , Severe (7-10) Referrals: PRIMARY CARE, [Primary Care Provider] - 3-5 Days Forms: Work/School Release Form(ED) Time of Disposition: 16:49
[2020-01-01 15:21] VITALS: BP 108/62
[2020-01-01 15:40] LABS: HCG Qualitative,Urine Negative (Negative)
--- NOTE | 2020-01-01 16:36 | XRay Report ---
CHEST 2 VIEWS INDICATION: MAIN: chest pain, cough; Pt. c/o sharp CP and aches to upper chest and shoulders, worse with movement . . COMPARISON: None. FINDINGS: Support devices: None. Heart: Within normal limits. Pulmonary vasculature: Normal. Lungs/pleura: No acute air space or interstitial disease. No pneumothorax. Additional findings: None. IMPRESSION: 1. No acute findings. Signer Name: Melchor Jarvis MD Signed: 01/01/2020 4:31 PM Workstation Name: [id number]
== END 2020-01-01 16:57 | disposition home or self-care (01) ==
LOC: ED 09:54
DX: R07.9 Chest pain, unspecified (principal); E66.9 Obesity, unspecified; Z68.43 Body mass index [BMI] 50.0-59.9, adult; Z79.899 Other long term (current) drug therapy; Z98.890 Other specified postprocedural states
CPT/HCPCS: 71046; 81025; 93005; 93010; 99283

== ENCOUNTER 2021-01-16 14:27 | Emergency (ER) | payer MEDICAID ==
--- NOTE | 2021-01-16 16:01 | Event Note ---
ED Screening Note Date of service: 01/16/21 Time: 15:57 ED Screening Note: 25-year-old morbid obese -[place] female presents to the emergency room complaining of chest pains, nausea vomiting and started yesterday last one was just prior to arrival. Chest pain and nausea and vomiting started today. Patient reports she was able to eat a saltine cracker. Patient states her chest pain is worse with movement and it is constant. She last had a Covid test was last month no recent testing. Last menstrual period was 11/02/2020 has a history of irregular menstrual cycles.
[2021-01-16 16:21] LABS: Basophils % (Auto) 0.3 % (0.0-1.8); Eosinophils # (Auto) 0.1 K/mm3 (0.0-0.4); Eosinophils % (Auto) 1.2 % (0.0-4.3); Hematocrit 39.9 % (30.3-42.9); Hemoglobin 13.1 gm/dl (10.1-14.3); Lymphocytes # (Auto) 3.2 K/mm3 (1.2-5.4); Lymphocytes % (Auto) 27.4 % (13.4-35.0); Mean Corpuscular HGB Conc 33 % (30-34); Mean Corpuscular Volume 86 fl (79-97); Monocytes # (Auto) 0.4 K/mm3 (0.0-0.8); Monocytes % (Auto) 3.4 % (0.0-7.3); Platelet Count 375 K/mm3 (140-440); Red Blood Count 4.62 M/mm3 (3.65-5.03); Red Cell Distribution Width 16.5 % (13.2-15.2)
[2021-01-16 16:39] LABS: Alanine Aminotransferase 26 units/L (7-56); Albumin 3.7 g/dL (3.9-5); Blood Urea Nitrogen 8 mg/dL (7-17); Calcium 9.4 mg/dL (8.4-10.2); Hemolysis Index 230
[2021-01-16 16:40] LABS: BUN/Creatinine Ratio 13
--- NOTE | 2021-01-16 17:19 | XRay Report ---
CHEST 2 VIEWS INDICATION / CLINICAL INFORMATION: cough and chest pain. COMPARISON: 01/01/2020. FINDINGS: SUPPORT DEVICES: None. HEART / MEDIASTINUM: No significant abnormality. LUNGS / PLEURA: No significant pulmonary or pleural abnormality. No pneumothorax. ADDITIONAL FINDINGS: No significant additional findings. IMPRESSION: No acute cardiopulmonary abnormality. Signer Name: Vishnu Mclean MD Signed: 01/16/2021 5:15 PM Workstation Name: [id number]
[2021-01-16] MEDS ORDERED: KETOROLAC 30 MG/1 ML INJ IM ONE (17:36)
--- NOTE | 2021-01-16 17:58 | Emergency Department Report ---
ED General Adult HPI - General Chief complaint: Nausea/Vomiting/Diarrhea Stated complaint: V/N/D CHEST PAIN Time Seen by Provider: 01/16/21 16:47 Source: patient Mode of arrival: Ambulatory Limitations: No Limitations - History of Present Illness Initial comments: 25-year-old female states that she was out yesterday and she ate food that made her stomach feel funny and she started belching around 12 noon yesterday. she woke up this morning with nausea and vomiting. She vomited a total of 3 times and loose stools 3-4 times. Her last episode of diarrhea was at 5 PM today patient states because of vomiting her chest wall flared up she has a history of costochondritis and she is now complaining of chest wall pain with palpation. She not denies fever she denies cough no URI symptoms no known sick contacts Severity scale (0 -10): 7 - Related Data Previous Rx's Medication Instructions Recorded Last Taken Type cephALEXin [Keflex] 500 mg PO Q12HR #20 cap 10/26/17 Unknown Rx traMADoL [Ultram] 50 mg PO Q6HR PRN #12 tablet 10/26/17 Unknown Rx Ciprofloxacin HCl [Ciprofloxacin 500 mg PO Q12H #14 tab 05/15/18 Unknown Rx TAB] traMADoL [Ultram] 50 mg PO Q6HR PRN #14 tablet 05/15/18 Unknown Rx Nitrofurantoin Monohyd/M-Cryst 100 mg PO BID #14 capsule 06/16/18 Unknown Rx [Macrobid 100 mg Capsule] traMADoL [Ultram 50 MG tab] 50 mg PO Q6HR PRN #10 tablet 06/16/18 Unknown Rx Cyclobenzaprine [Flexeril] 10 mg PO Q8H PRN #15 tablet 03/25/19 Unknown Rx Ibuprofen [Motrin] 800 mg PO Q8HR PRN #20 tablet 03/25/19 Unknown Rx Ibuprofen [Motrin 800 MG tab] 800 mg PO Q8HR PRN #10 tablet 10/08/19 Unknown Rx traMADoL [Ultram] 50 mg PO Q6HR PRN #12 tablet 10/08/19 Unknown Rx methylPREDNISolone [Medrol 4MG 4 mg PO ONCE 1 Days #1 tab.ds.pk 01/01/20 Unknown Rx DOSEPAK (21 tabs)] Ibuprofen [Motrin 800 MG tab] 800 mg PO Q8HR PRN #30 tablet 01/16/21 Unknown Rx Ondansetron [Zofran ODT TAB] 4 mg PO Q8HR PRN #14 tab.rapdis 01/16/21 Unknown Rx Allergies Allergy/AdvReac Type Severity Reaction Status Date / Time No Known Allergies Allergy Verified 10/26/17 17:49 ED Review of Systems ROS: Stated complaint: V/N/D CHEST PAIN Other details as noted in HPI ED Past Medical Hx - Past Medical History Previous Medical History?: Yes Additional medical history: obesity - Surgical History Past Surgical History?: Yes Additional Surgical History: - 2012 - Social History Smoking Status: Never Smoker Substance Use Type: None - Medications Home Medications: Home Medications Medication Instructions Recorded Confirmed Last Taken Type cephALEXin [Keflex] 500 mg PO Q12HR #20 cap 10/26/17 Unknown Rx traMADoL [Ultram] 50 mg PO Q6HR PRN #12 tablet 10/26/17 Unknown Rx Ciprofloxacin HCl [Ciprofloxacin 500 mg PO Q12H #14 tab 05/15/18 Unknown Rx TAB] traMADoL [Ultram] 50 mg PO Q6HR PRN #14 tablet 05/15/18 Unknown Rx Nitrofurantoin Monohyd/M-Cryst 100 mg PO BID #14 capsule 06/16/18 Unknown Rx [Macrobid 100 mg Capsule] traMADoL [Ultram 50 MG tab] 50 mg PO Q6HR PRN #10 tablet 06/16/18 Unknown Rx Cyclobenzaprine [Flexeril] 10 mg PO Q8H PRN #15 tablet 03/25/19 Unknown Rx Ibuprofen [Motrin] 800 mg PO Q8HR PRN #20 tablet 03/25/19 Unknown Rx Ibuprofen [Motrin 800 MG tab] 800 mg PO Q8HR PRN #10 tablet 10/08/19 Unknown Rx traMADoL [Ultram] 50 mg PO Q6HR PRN #12 tablet 10/08/19 Unknown Rx methylPREDNISolone [Medrol 4MG 4 mg PO ONCE 1 Days #1 tab.ds.pk 01/01/20 Unknown Rx DOSEPAK (21 tabs)] Ibuprofen [Motrin 800 MG tab] 800 mg PO Q8HR PRN #30 tablet 01/16/21 Unknown Rx Ondansetron [Zofran ODT TAB] 4 mg PO Q8HR PRN #14 tab.rapdis 01/16/21 Unknown Rx ED Physical Exam - General Limitations: No Limitations ED Course Vital Signs 01/16/21 01/16/21 15:07 18:01 Temperature 98 F 98.3 F Pulse Rate 82 82 Respiratory 20 18 Rate Blood Pressure 137/71 Blood Pressure 128/82 [Right] O2 Sat by Pulse 99 99 Oximetry ED Medical Decision Making - Lab Data Result diagrams: 01/16/21 16:01 01/16/21 16:01 - EKG Data EKG shows normal: sinus rhythm Rate: normal - Medical Decision Making 25-year-old female reports nausea and vomiting and diarrhea after eating food she believed was bad. She has a past medical history of costochondritis and after multiple episodes of vomiting patient states that her chest wall pain flared up on examination chest wall pain is reproducible she had a normal EKG chest x-ray had no acute findings her labs had no significant abnormality. Plan is to discharge patient home with gastroenteritis food poisoning instructions and to start a bland diet and follow-up with PCP or return to the emergency room for any worsening symptoms she is well-appearing and in no distress and is safe to be discharged home Critical care attestation.: If time is entered above; I have spent that time in minutes in the direct care of this critically ill patient, excluding procedure time. ED Disposition Clinical Impression: Food poisoning due to bacteria, Costochondral chest pain Disposition: - TO HOME OR SELFCARE Is pt being admited?: No Does the pt Need Aspirin: No Condition: Stable Instructions: Indigestion, Qqmt-[id number], Food Poisoning, Chest Wall Pain Additional Instructions: For the next 1 to 2 days consume a bland diet that consists of crackers soup broth, pablo eva Gatorade Sprite. Take Motrin as needed for chest wall pain. Also consider getting a Covid test done in the next 24 to 48 hours. Follow-up with your primary care doctor or return to the emergency room for any worsening symptoms. Prescriptions: Ibuprofen [Motrin 800 MG tab] 800 mg PO Q8HR PRN #30 tablet PRN Reason: Pain , Severe (7-10) Ondansetron [Zofran ODT TAB] 4 mg PO Q8HR PRN #14 tab.rapdis PRN Reason: Nausea And Vomiting Referrals: KATARZYNA GARCÍA MD [Staff Physician] - 3-5 Days PRIMARY CARE, [Primary Care Provider] - 3-5 Days Forms: Work/School Release Form(ED)
[2021-01-16 18:02] VITALS: BP 128/82
--- NOTE | 2021-01-18 11:09 | Electrocardiograph Report ---
[facility] Test Date: 2021-01-16 Test Time: 15:17:17 Pat Name: DAI ANTUNEZ Department: Room: Gender: F Kn[employer] Sewer: Hieu CARNEY RN : 1995 Requested By: LEONARDO OLSEN Order Number: [id number] Reading MD: Mateus Rosas Measurements Intervals [place] Rate: 79 P: 17 MD: 170 QRS: 53 QRSD: 77 T: 5 QT: 363 QTc: 415 Interpretive Statements Sinus rhythm Low voltage, precordial leads No previous ECG available for comparison Electronically Signed On 01-18-2021 8:09:22 PDT by Mateus Rosas
== END 2021-01-16 18:01 | disposition home or self-care (01) ==
LOC: ED 14:27
DX: M94.0 Chondrocostal junction syndrome [Tietze] (principal); A05.8 Other specified bacterial foodborne intoxications; Z79.899 Other long term (current) drug therapy
CPT/HCPCS: 36415; 71046; 80053; 84484; 84702; 85025; 93005; 96372; 99284; J1885

== ENCOUNTER 2021-05-21 13:42 | Inpatient (IN) | payer MEDICAID, OTHER, SELFPAY ==
--- NOTE | 2021-05-21 16:34 | Event Note ---
ED Screening Note Date of service: 05/21/21 Time: 16:34 ED Screening Note: 25-year-old morbid obese -[place] female presents to the emergency room for 1 day history of shortness of breath. Patient states that she had a positive Covid contact. She states that she cannot breathe. She is unvaccinated. No past medical history. Pulse ox was rechecked by this provider upon patient entering exam room saturations at 89% and heart rate of 129. Patient placed on nasal cannula 4 L and taken to room 36. Charge nurse has been notified chart has been placed over to the main ED for MD to see This initial assessment/diagnostic orders/clinical plan/treatment(s) is/are subject to change based on patients health status, clinical progression and re- assessment by fellow clinical providers in the ED. Further treatment and workup at subsequent clinical providers discretion. Patient/guardian urged not to elope from the ED as their condition may be serious if not clinically assessed and managed. Initial orders include:
[2021-05-21] MEDS ORDERED: AZITHROMYCIN/NS 500 MG/250 ML 500 MG/250 ML BAG IV ONE (16:43)
[2021-05-21] MEDS ORDERED: cefTRIAXone/NS 1 GM/50 ML 1 GM/50 ML BAG IV ONE (16:43)
[2021-05-21] MEDS ORDERED: dexAMETHasone 20 MG/5 ML VIAL IV ONE (16:43)
--- NOTE | 2021-05-21 16:50 | Emergency Department Report ---
ED Shortness of Breath HPI - General Chief Complaint: Dyspnea/Respdistress Stated Complaint: ELIEZER/POSSIBLE COVID Time Seen by Provider: 05/21/21 16:25 Source: patient, family Mode of arrival: Ambulatory Limitations: No Limitations - History of Present Illness Initial Comments: Chief complaint: " I could not breathe. I feel dehydrated." HPI: This is a 25-year-old female with history of BMI 53 who presents with severe shortness of breath for the past day. Her illness began 1 week ago with sweats cough diarrhea sore throat. Unknown sick contact. Her also has cough. She is a homemaker. She lives with her 8-year-old child and . She did visit friends to help move furniture. Several persons were at the home. No recent travel. She denies chest pain or leg pain. She has positive loss of taste and smell. She did not receive COVID-19 vaccination. She did not test for COVID-19. Provider triage documented 89% oxygen saturation on room air. MD Complaint: shortness of breath, cough -: Gradual (1 week) Severity: severe Consistency: constant Improves With: nothing Worsens With: nothing Known History Of: other (No previous history of shortness of breath) Context: other (Sweats, cough, diarrhea, loss of taste or smell) Associated Symptoms: cough, sputum production Treatments Prior to Arrival: other (DayQuil Tylenol) - Related Data Previous Rx's Medication Instructions Recorded Last Taken Type cephALEXin [Keflex] 500 mg PO Q12HR #20 cap 10/26/17 Unknown Rx traMADoL [Ultram] 50 mg PO Q6HR PRN #12 tablet 10/26/17 Unknown Rx Ciprofloxacin HCl [Ciprofloxacin 500 mg PO Q12H #14 tab 05/15/18 Unknown Rx TAB] traMADoL [Ultram] 50 mg PO Q6HR PRN #14 tablet 05/15/18 Unknown Rx Nitrofurantoin Monohyd/M-Cryst 100 mg PO BID #14 capsule 06/16/18 Unknown Rx [Macrobid 100 mg Capsule] traMADoL [Ultram 50 MG tab] 50 mg PO Q6HR PRN #10 tablet 06/16/18 Unknown Rx Cyclobenzaprine [Flexeril] 10 mg PO Q8H PRN #15 tablet 03/25/19 Unknown Rx Ibuprofen [Motrin] 800 mg PO Q8HR PRN #20 tablet 03/25/19 Unknown Rx Ibuprofen [Motrin 800 MG tab] 800 mg PO Q8HR PRN #10 tablet 10/08/19 Unknown Rx traMADoL [Ultram] 50 mg PO Q6HR PRN #12 tablet 10/08/19 Unknown Rx methylPREDNISolone [Medrol 4MG 4 mg PO ONCE 1 Days #1 tab.ds.pk 01/01/20 Unknown Rx DOSEPAK (21 tabs)] Ibuprofen [Motrin 800 MG tab] 800 mg PO Q8HR PRN #30 tablet 01/16/21 Unknown Rx Ondansetron [Zofran ODT TAB] 4 mg PO Q8HR PRN #14 tab.rapdis 01/16/21 Unknown Rx Allergies Allergy/AdvReac Type Severity Reaction Status Date / Time No Known Allergies Allergy Verified 10/26/17 17:49 ED Review of Systems ROS: Stated complaint: ELIEZER/POSSIBLE COVID Other details as noted in HPI Comment: All other systems reviewed and negative Constitutional: chills, fever, malaise ENT: throat pain Respiratory: cough, shortness of breath, wheezing Cardiovascular: denies: chest pain Gastrointestinal: diarrhea. denies: abdominal pain, nausea, vomiting Neurological: denies: headache ED Past Medical Hx - Past Medical History Previous Medical History?: Yes Additional medical history: obesity BMI 53 - Surgical History Past Surgical History?: Yes Additional Surgical History: - 2011 - Family History Family history: hypertension - Social History Smoking Status: Never Smoker Substance Use Type: Alcohol (Social use) - Medications Home Medications: Home Medications Medication Instructions Recorded Confirmed Last Taken Type cephALEXin [Keflex] 500 mg PO Q12HR #20 cap 10/26/17 Unknown Rx traMADoL [Ultram] 50 mg PO Q6HR PRN #12 tablet 10/26/17 Unknown Rx Ciprofloxacin HCl [Ciprofloxacin 500 mg PO Q12H #14 tab 05/15/18 Unknown Rx TAB] traMADoL [Ultram] 50 mg PO Q6HR PRN #14 tablet 05/15/18 Unknown Rx Nitrofurantoin Monohyd/M-Cryst 100 mg PO BID #14 capsule 06/16/18 Unknown Rx [Macrobid 100 mg Capsule] traMADoL [Ultram 50 MG tab] 50 mg PO Q6HR PRN #10 tablet 06/16/18 Unknown Rx Cyclobenzaprine [Flexeril] 10 mg PO Q8H PRN #15 tablet 03/25/19 Unknown Rx Ibuprofen [Motrin] 800 mg PO Q8HR PRN #20 tablet 03/25/19 Unknown Rx Ibuprofen [Motrin 800 MG tab] 800 mg PO Q8HR PRN #10 tablet 10/08/19 Unknown Rx traMADoL [Ultram] 50 mg PO Q6HR PRN #12 tablet 10/08/19 Unknown Rx methylPREDNISolone [Medrol 4MG 4 mg PO ONCE 1 Days #1 tab.ds.pk 01/01/20 Unknown Rx DOSEPAK (21 tabs)] Ibuprofen [Motrin 800 MG tab] 800 mg PO Q8HR PRN #30 tablet 01/16/21 Unknown Rx Ondansetron [Zofran ODT TAB] 4 mg PO Q8HR PRN #14 tab.rapdis 01/16/21 Unknown Rx ED Physical Exam - General Limitations: No Limitations General appearance: alert, anxious, other (Mild work of breathing, respiratory rate 30 breaths/min) - Head Head exam: Present: atraumatic, normocephalic - Eye Eye exam: Present: normal appearance - ENT ENT exam: Present: mucous membranes moist - Neck Neck exam: Present: normal inspection, full ROM - Respiratory Respiratory exam: Present: respiratory distress, decreased breath sounds. Absent: wheezes, rales, rhonchi - Cardiovascular Cardiovascular Exam: Present: normal rhythm, tachycardia, normal heart sounds. Absent: systolic murmur, diastolic murmur, rubs, gallop - GI/Abdominal GI/Abdominal exam: Present: soft, normal bowel sounds. Absent: distended, tenderness, guarding, rebound - Extremities Exam Extremities exam: Present: normal inspection - Neurological Exam Neurological exam: Present: alert, oriented X3 - Psychiatric Psychiatric exam: Present: normal affect, anxious - Skin Skin exam: Present: warm, dry, intact, normal color. Absent: rash ED Course Vital Signs 05/21/21 13:45 Temperature 97.8 F Pulse Rate 114 H Respiratory 16 Rate Blood Pressure 121/78 [Left] O2 Sat by Pulse 94 Oximetry ED Medical Decision Making - Lab Data Result diagrams: 05/21/21 16:56 05/21/21 16:56 - Radiology Data Radiology results: report reviewed Study Comments [facility] [address] [place] [address] XRay Report Signed Patient: DAI ANTUNEZ MR#: [id number] : 1995 Acct:[id number] Age/Sex: 25 / F ADM Date: 05/21/21 Loc: ED Attending Dr: Ordering Physician: CECILIA SANCHEZ Date of Service: 05/21/21 Procedure(s): XR chest routine 2V Accession Number(s): [id number] cc: CECILIA SANCHEZ Fluoro Time In Minutes: CHEST 2 VIEWS INDICATION / CLINICAL INFORMATION: Shortness of breath. COMPARISON: 01/16/21. FINDINGS: SUPPORT DEVICES: None. HEART / MEDIASTINUM: The heart size and pulmonary vasculature are normal. LUNGS / PLEURA: There are mild to moderate patchy parenchymal opacities in both mid to lower lung zones. No pleural effusion. No pneumothorax. ADDITIONAL FINDINGS: No significant additional findings. IMPRESSION: Mild to moderate patchy parenchymal opacities in both lower lung zones are nonspecific. Atypical causes of pneumonia, including viral pneumonia, should be considered. Signer Name: Tuan Thurman MD Signed: 05/21/2021 5:41 PM Workstation Name: [id number] Transcribed By: RT Dictated By: Tuan Thurman MD Electronically Authenticated By: Tuan Thurman MD Signed Date/Time: 05/21/211740 DD/ 39 TD/TT: - Medical Decision Making 1. Acute respiratory failure hypoxia due to multifocal pneumonia suspected COVID-19 infection., patient's pulse oximetry at rest 89% requiring 4 L nasal cannula. Patient treated with IV dexamethasone, IV ceftriaxone and IV azithromycin to cover for possible bacterial infection. Labs indicate likely COVID-19 infection with elevated ferritin, normal WBC with lymphopenia 2. Hypovolemic hyponatremia suspected with reported diarrhea. Patient received IV normal saline in the emergency department. Critical care attestation.: If time is entered above; I have spent that time in minutes in the direct care of this critically ill patient, excluding procedure time. ED Disposition Clinical Impression: Acute respiratory failure with hypoxia, Multifocal pneumonia, Suspected COVID- 19 virus infection, Dehydration Disposition: OP ADMIT IP TO THIS HOSP Is pt being admited?: Yes Does the pt Need Aspirin: No Condition: Fair Instructions: Bacterial Pneumonia (ED)
[2021-05-21 17:21] LABS: Basophils % (Auto) 0.5 % (0.0-1.8); Hematocrit 38.4 % (30.3-42.9); Hemoglobin 13.1 gm/dl (10.1-14.3); Lymphocytes # (Auto) 0.8 K/mm3 (1.2-5.4); Lymphocytes % (Auto) 13.6 % (13.4-35.0); Mean Corpuscular HGB Conc 34 % (30-34); Mean Corpuscular Volume 86 fl (79-97); Monocytes # (Auto) 0.2 K/mm3 (0.0-0.8); Monocytes % (Auto) 3.9 % (0.0-7.3); Platelet Count 241 K/mm3 (140-440); Red Blood Count 4.47 M/mm3 (3.65-5.03); Red Cell Distribution Width 16.1 % (13.2-15.2)
[2021-05-21 17:40] LABS: C-Reactive Protein 0.5 mg/dL (0.00-1.30)
[2021-05-21 17:41] LABS: Alanine Aminotransferase 35 units/L (7-56); Albumin 3.9 g/dL (3.9-5); Blood Urea Nitrogen 6 mg/dL (7-17); Hemolysis Index 15
--- NOTE | 2021-05-21 17:46 | XRay Report ---
CHEST 2 VIEWS INDICATION / CLINICAL INFORMATION: Shortness of breath. COMPARISON: 01/16/21. FINDINGS: SUPPORT DEVICES: None. HEART / MEDIASTINUM: The heart size and pulmonary vasculature are normal. LUNGS / PLEURA: There are mild to moderate patchy parenchymal opacities in both mid to lower lung zon es. No pleural effusion. No pneumothorax. ADDITIONAL FINDINGS: No significant additional findings. IMPRESSION: Mild to moderate patchy parenchymal opacities in both lower lung zones are nonspecific. A typical causes of pneumonia, including viral pneumonia, should be considered. Signer Name: Tuan Thurman MD Signed: 05/21/2021 5:41 PM Workstation Name: [id number]
[2021-05-21 17:57] LABS: BUN/Creatinine Ratio 9; HCG,Quantitative < 2 mIU/mL (0-4)
[2021-05-21] MEDS ORDERED: SODIUM CHLORIDE 0.9% 1000 ML 1,000 ML IV ONE (18:38)
[2021-05-21] MEDS ORDERED: ONDANSETRON 4 MG/2 ML INJ IV ONE (18:43)
[2021-05-21] MEDS ORDERED: MORPHINE 4 MG/1 ML INJ IV ONE (18:43)
[2021-05-21] MEDS ORDERED: METOCLOPRAMIDE 10 MG/2 ML INJ IV PRN (20:35)
[2021-05-21] MEDS ORDERED: MORPHINE 4 MG/1 ML INJ IV PRN (20:35)
[2021-05-21] MEDS ORDERED: ALUM-MAG HYDROXIDE-SIMETHICONE 200-200-20MG/5ML ORAL LIQD 30 ML PO PRN (20:35)
[2021-05-21] MEDS ORDERED: HYDROcodone/ACETAMINOPHEN 5-325 MG TAB PO PRN (20:35)
[2021-05-21] MEDS ORDERED: ONDANSETRON 4 MG/2 ML INJ IV PRN (20:35)
[2021-05-21] MEDS ORDERED: NALOXONE 0.4 MG/1 ML INJ IV PRN (20:35)
[2021-05-21] MEDS ORDERED: MAGNESIUM HYDROXIDE (MOM) ORAL LIQD UDC PO PRN (20:35)
[2021-05-21] MEDS ORDERED: ACETAMINOPHEN 325 MG TAB PO PRN (20:35)
[2021-05-21] MEDS ORDERED: SENNOSIDES 8.6 MG TAB PO PRN (20:35)
[2021-05-21] MEDS ORDERED: SODIUM CHLORIDE 0.9% 1000 ML 1,000 ML IV SCH (20:45)
[2021-05-21] MEDS ORDERED: ENOXAPARIN 30 MG/0.3 ML INJ SUB-Q SCH (21:00)
--- NOTE | 2021-05-21 21:18 | History and Physical Report ---
History of Present Illness Date of examination: 05/14/21 Date of admission: 05/21/21 18:13 Chief complaint: Shortness of breath Cough and generalized weakness Abdominal pain and diarrhea History of present illness: This is a 25-year-old female who presents with severe shortness of breath for the past day. She reports generalized weakness, cough, diarrhea and a sore throat. She lives with her 8-year-old child and . She reported she did not get Covid shot. She denies tobacco use, alcohol use, and illicit drug use. Chest x-ray done reviewed bilateral infiltrates likely secondary to bacterial/viral infection. Patient also reports positive for loss of taste and smell. Hospitalist medicine consulted to admit patient for pneumonia/rule out Covid. Past History Past Medical History: No medical history Past Surgical History: No surgical history Social history: lives with family Family history: no significant family history Medications and Allergies Allergies Allergy/AdvReac Type Severity Reaction Status Date / Time No Known Allergies Allergy Verified 10/26/17 17:49 Home Medications Medication Instructions Recorded Confirmed Last Taken Type cephALEXin [Keflex] 500 mg PO Q12HR #20 cap 10/26/17 Unknown Rx traMADoL [Ultram] 50 mg PO Q6HR PRN #12 tablet 10/26/17 Unknown Rx Ciprofloxacin HCl [Ciprofloxacin 500 mg PO Q12H #14 tab 05/15/18 Unknown Rx TAB] traMADoL [Ultram] 50 mg PO Q6HR PRN #14 tablet 05/15/18 Unknown Rx Nitrofurantoin Monohyd/M-Cryst 100 mg PO BID #14 capsule 06/16/18 Unknown Rx [Macrobid 100 mg Capsule] traMADoL [Ultram 50 MG tab] 50 mg PO Q6HR PRN #10 tablet 06/16/18 Unknown Rx Cyclobenzaprine [Flexeril] 10 mg PO Q8H PRN #15 tablet 03/25/19 Unknown Rx Ibuprofen [Motrin] 800 mg PO Q8HR PRN #20 tablet 03/25/19 Unknown Rx Ibuprofen [Motrin 800 MG tab] 800 mg PO Q8HR PRN #10 tablet 10/08/19 Unknown Rx traMADoL [Ultram] 50 mg PO Q6HR PRN #12 tablet 10/08/19 Unknown Rx methylPREDNISolone [Medrol 4MG 4 mg PO ONCE 1 Days #1 tab.ds.pk 01/01/20 Unknown Rx DOSEPAK (21 tabs)] Ibuprofen [Motrin 800 MG tab] 800 mg PO Q8HR PRN #30 tablet 01/16/21 Unknown Rx Ondansetron [Zofran ODT TAB] 4 mg PO Q8HR PRN #14 tab.rapdis 01/16/21 Unknown Rx Active Meds: Active Medications Acetaminophen (Acetaminophen 325 Mg Tab) 650 mg PO Q4H PRN PRN Reason: Pain MILD(1-3)/Fever >100.5/HERRERA Al Hydrox/Mg Hydrox/Simethicone (Alum-Mag Hydroxide-Simethicone [phone]/5ml Oral Liqd 30 Ml) 30 ml PO Q4H PRN PRN Reason: Indigestion Ascorbic Acid (Ascorbic Acid 500 Mg Tab) 500 mg PO QDAY [facility] Cholecalciferol (Cholecalciferol (Vit D3) 5,000 Unit Tab) 5,000 unit PO DAILY [facility] Cholecalciferol (Cholecalciferol (Vit D3) 1000 Unit (25 Mcg) Tab) 1,000 unit PO QDAY [facility] Enoxaparin Sodium (Enoxaparin 40 Mg/0.4 Ml Inj) 40 mg SUB-Q QDAY@2200 [facility] Famotidine (Famotidine 20 Mg/2 Ml Inj) 20 mg IV BID [facility] Sodium Chloride (Nacl 0.9% 1000 Ml) 1,000 mls @ 42 mls/hr IV DIRECT [facility] Azithromycin (Zithromax/Ns) 500 mg in 250 mls @ 250 mls/hr IV Q24H [facility] Ceftriaxone Sodium (Rocephin/Ns 1 Gm/50 Ml) 1 gm in 50 mls @ 100 mls/hr IV Q24H [facility]; Protocol Ibuprofen (Ibuprofen 600 Mg Tab) 600 mg PO Q6H PRN PRN Reason: Pain, Mild (1-3) Magnesium Hydroxide (Magnesium Hydroxide (Mom) Oral Liqd Udc) 30 ml PO Q4H PRN PRN Reason: Constipation Metoclopramide HCl (Metoclopramide 10 Mg/2 Ml Inj) 10 mg IV Q6H PRN PRN Reason: Nausea And Vomiting Naloxone HCl (Naloxone 0.4 Mg/1 Ml Inj) 0.1 mg IV Q2MIN PRN PRN Reason: Res Rate </= 8 or 02 SAT < 92% Ondansetron HCl (Ondansetron 4 Mg/2 Ml Inj) 4 mg IV Q8H PRN PRN Reason: Nausea And Vomiting Senna (Sennosides 8.6 Mg Tab) 8.6 mg PO Q12HR PRN PRN Reason: Constipation Sodium Chloride (Sodium Chloride 0.9% 10 Ml Flush Syringe) 10 ml IV BID [facility] Zinc Sulfate (Zinc Sulfate 220 Mg Cap) 220 mg PO QDAY [facility] Review of Systems Constitutional: weakness Ears, nose, mouth and throat: no epistaxis, no bleeding gums Respiratory: cough, cough with sputum, shortness of breath, congestion Gastrointestinal: no melena Rectal: no hemorrhoids Integumentary: no rash, no pruritis Neurological: head injury Psychiatric: no disorientation, no hallucinations Hematologic/Lymphatic: no easy bruising, no easy bleeding Allergic/Immunologic: no urticaria Exam - Constitutional Vitals: Temp Pulse Resp BP Pulse Ox 97.8 F 111 H 20 107/74 98 05/21/21 13:45 05/21/21 19:06 05/21/21 19:06 05/21/21 19:06 05/21/21 19:06 General appearance: Present: mild distress, obese - EENT Eyes: Present: PERRL ENT: hearing intact, clear oral mucosa - Neck Neck: Present: supple, normal ROM - Respiratory Respiratory effort: normal Respiratory: bilateral: CTA - Cardiovascular Heart rate: 111 Heart Sounds: Present: S1 & S2. Absent: rub, click - Extremities Extremities: pulses symmetrical, No edema Peripheral Pulses: within normal limits - Abdominal General gastrointestinal: Present: soft, non-tender, non-distended, normal bowel sounds Female genitourinary: Present: normal - Integumentary Integumentary: Present: clear, warm, dry - Musculoskeletal Musculoskeletal: strength equal bilaterally, generalized weakness - Psychiatric Psychiatric: appropriate mood/affect, intact judgment & insight, cooperative - Neurologic Neurologic: CNII-XII intact, moves all extremities - Allied Health Allied health notes reviewed: nursing Results - Labs CBC & Chem 7: 05/21/21 16:56 05/21/21 16:56 Labs: Abnormal lab results 05/21/21 05/21/21 05/21/21 Range/Units 16:56 16:56 16:56 RDW 16.1 H (13.2-15.2) % Lymph # (Auto) 0.8 L (1.2-5.4) K/mm3 Seg Neutrophils % 82.0 H (40.0-70.0) % D-Dimer 321.42 H (0-234) ng/mlDDU Sodium 131 L (137-145) mmol/L Chloride 96.9 L (98-107) mmol/L BUN 6 L (7-17) mg/dL Glucose 101 H (65-100) mg/dL Ferritin (10.0-200.0) ng/mL AST 45 H (5-40) units/L Lactate Dehydrogenase (91-180) units/L 05/21/21 05/21/21 Range/Units 16:56 16:56 RDW (13.2-15.2) % Lymph # (Auto) (1.2-5.4) K/mm3 Seg Neutrophils % (40.0-70.0) % D-Dimer (0-234) ng/mlDDU Sodium (137-145) mmol/L Chloride (98-107) mmol/L BUN (7-17) mg/dL Glucose 101 H (65-100) mg/dL Ferritin 227.6 H (10.0-200.0) ng/mL AST (5-40) units/L Lactate Dehydrogenase 244 H (91-180) units/L Assessment and Plan - Patient Problems (1) Acute respiratory failure with hypoxia Current Visit: Yes Status: Acute Plan to address problem: Secondary to pneumonia Bronchodilators and oxygen supplement (2) Multifocal pneumonia Current Visit: Yes Status: Acute Plan to address problem: Empiric antibiotic with azithromycin and Rocephin ABG ID consult follow-up with recommendation (3) Suspected COVID-19 virus infection Current Visit: Yes Status: Acute Plan to address problem: Chest x-ray shows bilateral pneumonia Airborne and contact isolationrule out Covid Ascorbic acid, zinc sulfate, and vitamin D supplement Monitor inflammatory markers Empiric antibiotic and oxygen supplement Encourage early ambulation and use of incentive spirometer (4) Dehydration Current Visit: Yes Status: Acute Plan to address problem: IV hydration with normal saline Monitor sodium level (5) DVT prophylaxis Current Visit: Yes Status: Acute Plan to address problem: Subcutaneous Lovenox
[2021-05-21] MEDS: guaiFENesin DM 200/20 MG ORAL LIQD 10 ML PO PRN (23:50)
[2021-05-21] MEDS: ENOXAPARIN 40 MG/0.4 ML INJ SUB-Q SCH (23:51)
[2021-05-22] MEDS: FAMOTIDINE 20 MG/2 ML INJ IV SCH ×2 (00:51→12:09)
[2021-05-22] MEDS: IBUPROFEN 600 MG TAB PO PRN (00:55)
[2021-05-22] MEDS: HYDROmorphone 1 MG/1 ML INJ IV PRN ×4 (01:35→22:08)
[2021-05-22 06:21] LABS: Basophils % (Auto) 0.2 % (0.0-1.8); Hematocrit 37.2 % (30.3-42.9); Hemoglobin 12.4 gm/dl (10.1-14.3); Lymphocytes # (Auto) 1.1 K/mm3 (1.2-5.4); Lymphocytes % (Auto) 28.4 % (13.4-35.0); Mean Corpuscular HGB Conc 33 % (30-34); Mean Corpuscular Volume 87 fl (79-97); Monocytes # (Auto) 0.1 K/mm3 (0.0-0.8); Monocytes % (Auto) 3.8 % (0.0-7.3); Platelet Count 231 K/mm3 (140-440); Red Blood Count 4.27 M/mm3 (3.65-5.03); Red Cell Distribution Width 15.3 % (13.2-15.2)
[2021-05-22 07:03] LABS: Alanine Aminotransferase 30 units/L (7-56); Albumin 3.8 g/dL (3.9-5); Blood Urea Nitrogen 7 mg/dL (7-17); Calcium 8.6 mg/dL (8.4-10.2); Hemolysis Index 3
[2021-05-22 07:04] LABS: C-Reactive Protein 0.7 mg/dL (0.00-1.30)
[2021-05-22 07:28] LABS: BUN/Creatinine Ratio 12
--- NOTE | 2021-05-22 11:24 | Consultation ---
History of Present Illness - Reason for Consult Consult date: 05/22/21 PUI Requesting physician: AURORA WHITAKER - History of Present Illness The patient is a 25-year-old female admitted with shortness of breath and concerns for COVID-19 PUI. She is unvaccinated. Afebrile, hypoxic requiring supplemental oxygen by nasal cannula. Chest x-ray revealed patchy airspace disease labs revealed mild leukopenia. Procalcitonin is pending. CRP 0.5 Review of Systems: reviewed in the chart, unable to obtain, minimize risk of transmission Past History Past Medical History: No medical history Past Surgical History: No surgical history Social history: lives with family Family history: no significant family history Medications and Allergies Allergies Allergy/AdvReac Type Severity Reaction Status Date / Time No Known Allergies Allergy Verified 10/26/17 17:49 Home Medications Medication Instructions Recorded Confirmed Last Taken Type cephALEXin [Keflex] 500 mg PO Q12HR #20 cap 10/26/17 Unknown Rx traMADoL [Ultram] 50 mg PO Q6HR PRN #12 tablet 10/26/17 Unknown Rx Ciprofloxacin HCl [Ciprofloxacin 500 mg PO Q12H #14 tab 05/15/18 Unknown Rx TAB] traMADoL [Ultram] 50 mg PO Q6HR PRN #14 tablet 05/15/18 Unknown Rx Nitrofurantoin Monohyd/M-Cryst 100 mg PO BID #14 capsule 06/16/18 Unknown Rx [Macrobid 100 mg Capsule] traMADoL [Ultram 50 MG tab] 50 mg PO Q6HR PRN #10 tablet 06/16/18 Unknown Rx Cyclobenzaprine [Flexeril] 10 mg PO Q8H PRN #15 tablet 03/25/19 Unknown Rx Ibuprofen [Motrin] 800 mg PO Q8HR PRN #20 tablet 03/25/19 Unknown Rx Ibuprofen [Motrin 800 MG tab] 800 mg PO Q8HR PRN #10 tablet 10/08/19 Unknown Rx traMADoL [Ultram] 50 mg PO Q6HR PRN #12 tablet 10/08/19 Unknown Rx methylPREDNISolone [Medrol 4MG 4 mg PO ONCE 1 Days #1 tab.ds.pk 01/01/20 Unknown Rx DOSEPAK (21 tabs)] Ibuprofen [Motrin 800 MG tab] 800 mg PO Q8HR PRN #30 tablet 01/16/21 Unknown Rx Ondansetron [Zofran ODT TAB] 4 mg PO Q8HR PRN #14 tab.rapdis 01/16/21 Unknown Rx Active Meds: Active Medications Acetaminophen (Acetaminophen 325 Mg Tab) 650 mg PO Q4H PRN PRN Reason: Pain MILD(1-3)/Fever >100.5/HERRERA Al Hydrox/Mg Hydrox/Simethicone (Alum-Mag Hydroxide-Simethicone [phone]/5ml Oral Liqd 30 Ml) 30 ml PO Q4H PRN PRN Reason: Indigestion Ascorbic Acid (Ascorbic Acid 500 Mg Tab) 500 mg PO QDAY [facility] Cholecalciferol (Cholecalciferol (Vit D3) 5,000 Unit Tab) 5,000 unit PO DAILY [facility] Cholecalciferol (Cholecalciferol (Vit D3) 1000 Unit (25 Mcg) Tab) 1,000 unit PO QDAY [facility] Dexamethasone (Dexamethasone 4 Mg/Ml Vial) 6 mg IV DAILY [facility] Enoxaparin Sodium (Enoxaparin 40 Mg/0.4 Ml Inj) 40 mg SUB-Q QDAY@2200 [facility] Last Admin: 05/21/21 23:51 Dose: 40 mg Documented by: Famotidine (Famotidine 20 Mg/2 Ml Inj) 20 mg IV BID [facility] Last Admin: 05/22/21 00:51 Dose: 20 mg Documented by: Guaifenesin (Guaifenesin Dm 200/20 Mg Oral Liqd 10 Ml) 20 ml PO Q4H PRN PRN Reason: Cough Last Admin: 05/21/21 23:50 Dose: 20 ml Documented by: Hydromorphone HCl (Hydromorphone 1 Mg/1 Ml Inj) 0.5 mg IV Q3H PRN PRN Reason: Pain , Severe (7-10) Last Admin: 05/22/21 01:35 Dose: 0.5 mg Documented by: Sodium Chloride (Nacl 0.9% 1000 Ml) 1,000 mls @ 42 mls/hr IV DIRECT [facility] Azithromycin (Zithromax/Ns) 500 mg in 250 mls @ 250 mls/hr IV Q24H [facility] Ceftriaxone Sodium (Rocephin/Ns 1 Gm/50 Ml) 1 gm in 50 mls @ 100 mls/hr IV Q24H [facility]; Protocol Ibuprofen (Ibuprofen 600 Mg Tab) 600 mg PO Q6H PRN PRN Reason: Pain, Mild (1-3) Last Admin: 05/22/21 00:55 Dose: 600 mg Documented by: Magnesium Hydroxide (Magnesium Hydroxide (Mom) Oral Liqd Udc) 30 ml PO Q4H PRN PRN Reason: Constipation Metoclopramide HCl (Metoclopramide 10 Mg/2 Ml Inj) 10 mg IV Q6H PRN PRN Reason: Nausea And Vomiting Naloxone HCl (Naloxone 0.4 Mg/1 Ml Inj) 0.1 mg IV Q2MIN PRN PRN Reason: Res Rate </= 8 or 02 SAT < 92% Ondansetron HCl (Ondansetron 4 Mg/2 Ml Inj) 4 mg IV Q8H PRN PRN Reason: Nausea And Vomiting Senna (Sennosides 8.6 Mg Tab) 8.6 mg PO Q12HR PRN PRN Reason: Constipation Sodium Chloride (Sodium Chloride 0.9% 10 Ml Flush Syringe) 10 ml IV BID [facility] Last Admin: 05/21/21 22:05 Dose: 10 ml Documented by: Zinc Sulfate (Zinc Sulfate 220 Mg Cap) 220 mg PO QDAY [facility] Physical Examination - Physical Exam Narrative exam: Physical Exam (reviewed in chart to minimize risk of transmission) Constitutional: deferred Head, Ears, Nose: deferred Eyes: deferred Neck: deferred Oral: deferred Cardiovascular: deferred Respiratory: deferred GI: deferred Musculoskeletal: deferred Skin: deferred Hem/Lymphatic: deferred Psych: deferred Neurological: deferred - Constitutional Vitals: Vital Signs Temp Pulse Resp BP Pulse Ox 99.3 F 82 20 114/65 93 05/22/21 01:01 05/22/21 07:56 05/22/21 08:08 05/22/21 07:56 05/22/21 08:08 Temperature -Last 24 Hours Temperature 99.3 F Temperature 97.8 F Results - Labs CBC & Chem 7: 05/22/21 05:36 05/22/21 05:36 Labs: Abnormal lab results 05/21/21 05/21/21 05/21/21 Range/Units 16:56 16:56 16:56 WBC (4.5-11.0) K/mm3 RDW 16.1 H (13.2-15.2) % Lymph # (Auto) 0.8 L (1.2-5.4) K/mm3 Seg Neutrophils % 82.0 H (40.0-70.0) % D-Dimer 321.42 H (0-234) ng/mlDDU Sodium 131 L (137-145) mmol/L Chloride 96.9 L (98-107) mmol/L BUN 6 L (7-17) mg/dL Glucose 101 H (65-100) mg/dL Ferritin (10.0-200.0) ng/mL AST 45 H (5-40) units/L Lactate Dehydrogenase (91-180) units/L Albumin (3.9-5) g/dL 05/21/21 05/21/21 05/22/21 Range/Units 16:56 16:56 05:36 WBC 3.9 L (4.5-11.0) K/mm3 RDW 15.3 H (13.2-15.2) % Lymph # (Auto) 1.1 L (1.2-5.4) K/mm3 Seg Neutrophils % (40.0-70.0) % D-Dimer (0-234) ng/mlDDU Sodium (137-145) mmol/L Chloride (98-107) mmol/L BUN (7-17) mg/dL Glucose 101 H (65-100) mg/dL Ferritin 227.6 H (10.0-200.0) ng/mL AST (5-40) units/L Lactate Dehydrogenase 244 H (91-180) units/L Albumin (3.9-5) g/dL 05/22/21 05/22/21 05/22/21 Range/Units 05:36 05:36 05:36 WBC (4.5-11.0) K/mm3 RDW (13.2-15.2) % Lymph # (Auto) (1.2-5.4) K/mm3 Seg Neutrophils % (40.0-70.0) % D-Dimer 275.23 H (0-234) ng/mlDDU Sodium 136 L (137-145) mmol/L Chloride (98-107) mmol/L BUN (7-17) mg/dL Glucose 134 H (65-100) mg/dL Ferritin (10.0-200.0) ng/mL AST (5-40) units/L Lactate Dehydrogenase 227 H (91-180) units/L Albumin 3.8 L (3.9-5) g/dL 05/22/21 Range/Units 05:36 WBC (4.5-11.0) K/mm3 RDW (13.2-15.2) % Lymph # (Auto) (1.2-5.4) K/mm3 Seg Neutrophils % (40.0-70.0) % D-Dimer (0-234) ng/mlDDU Sodium (137-145) mmol/L Chloride (98-107) mmol/L BUN (7-17) mg/dL Glucose (65-100) mg/dL Ferritin 236.9 H (10.0-200.0) ng/mL AST (5-40) units/L Lactate Dehydrogenase (91-180) units/L Albumin (3.9-5) g/dL - Imaging and Cardiology Chest x-ray: report reviewed, image reviewed (patchy b/l opacities) Assessment and Plan Cultures: SARS CoV2 PCR: Pending 05/21/2021 blood culture: In process A/P: 25-year-old female, unvaccinated for COVID-19 with: #Bilateral pneumonia: COVID-19 PUI #Acute hypoxic respiratory failure: On nasal cannula #Mild leukopenia: Possibly viral illness related #Morbid obesity Recs: IV/PO Dexamethasone 6 mg daily x 10 days Continue empiric antibiotics, discontinue if procalcitonin is low If COVID-19 PCR is positive, start remdesivir prophylactic anticoagulation based on d-dimer per hospital protocol trend ferritin, LDH, d-dimer, CRP every 2-3 days for risk stratification and to assess disease progression Ton Medina MD, FACP [facility] ([facility] O: [phone] F: [phone]
[2021-05-22] MEDS: CHOLECALCIFEROL (VIT D3) 1000 UNIT (25 mcg) TAB PO SCH (12:09)
[2021-05-22] MEDS: ZINC SULFATE 220 MG CAP PO SCH (12:09)
[2021-05-22] MEDS: cefTRIAXone/NS 1 GM/50 ML 1 GM/50 ML BAG IV SCH (12:09)
[2021-05-22] MEDS: ASCORBIC ACID 500 MG TAB PO SCH (12:09)
[2021-05-22] MEDS: dexAMETHasone 4 MG/ML VIAL IV SCH (12:09)
[2021-05-22] MEDS: CHOLECALCIFEROL (VIT D3) 5,000 UNIT TAB PO SCH (12:09)
--- NOTE | 2021-05-22 12:10 | Progress Note ---
Assessment and Plan - Patient Problems (1) Coronavirus infection Current Visit: Yes Status: Acute Plan to address problem: Coronavirus protocol: IV antibiotic therapy, IV steroid therapy, supplemental oxygen, pulse oximetry, nebulizer therapy, vitamin C therapy, vitamin D therapy, zinc therapy, prophylactic anticoagulation. (2) Obesity hypoventilation syndrome Current Visit: Yes Status: Acute Plan to address problem: Balanced diet, increase physical activity at discharge, outpatient pulmonary follow-up for sleep study. (3) Acute respiratory failure with hypoxia Current Visit: Yes Status: Acute Plan to address problem: Supplemental oxygen, pulse oximetry, nebulizer therapy, treat coronavirus infection, prone positioning while in bed, (4) Multifocal pneumonia Current Visit: Yes Status: Acute Plan to address problem: Pneumonia protocol: Chest x-ray, CBC, CMP, IV antibiotic therapy, supplemental oxygen, pulse oximetry, nebulizer therapy, blood culture. (5) DVT prophylaxis Current Visit: Yes Status: Acute Plan to address problem: SCDs bilateral lower extremities while in bed, prophylactic anticoagulation History Interval history: 25 YO Female with Obesity Hypoventilation Syndrome, SMO, Pneumonia, COVID 19, acute hypoxemic respiratory failure, volume depletion. Patient convalesced well overnight. Patient knowledges persistent shortness of breath. Patient denies pain. No reported nursing events. Patient reports that she feels better today than on admission. Hospitalist Physical - Constitutional Vitals: Temp Pulse Resp BP Pulse Ox 99.3 F 82 20 114/65 93 05/22/21 01:01 05/22/21 07:56 05/22/21 08:08 05/22/21 07:56 05/22/21 08:08 General appearance: Present: mild distress, obese - EENT Eyes: Present: PERRL, EOM intact ENT: hearing intact - Neck Neck: Present: supple - Respiratory Respiratory effort: labored Respiratory: bilateral: diminished, rhonchi - Cardiovascular Rhythm: regular Heart Sounds: Present: S1 & S2 - Extremities Extremities: no ischemia Peripheral Pulses: within normal limits - Abdominal General gastrointestinal: soft, non-tender, non-distended - Integumentary Integumentary: Present: clear, dry - Psychiatric Psychiatric: appropriate mood/affect, cooperative - Neurologic Neurologic: CNII-XII intact Results - Labs CBC & Chem 7: 05/22/21 05:36 05/22/21 05:36 Labs: Laboratory Last Values WBC 3.9 K/mm3 (4.5-11.0) L 05/22/21 05:36 RBC 4.27 M/mm3 (3.65-5.03) 05/22/21 05:36 Hgb 12.4 gm/dl (10.1-14.3) 05/22/21 05:36 Hct 37.2 % (30.3-42.9) 05/22/21 05:36 MCV 87 fl (79-97) 05/22/21 05:36 MCH 29 pg (28-32) 05/22/21 05:36 MCHC 33 % (30-34) 05/22/21 05:36 RDW 15.3 % (13.2-15.2) H 05/22/21 05:36 Plt Count 231 K/mm3 (140-440) 05/22/21 05:36 Lymph % (Auto) 28.4 % (13.4-35.0) 05/22/21 05:36 [place] % (Auto) 3.8 % (0.0-7.3) 05/22/21 05:36 Eos % (Auto) 0.0 % (0.0-4.3) 05/22/21 05:36 Baso % (Auto) 0.2 % (0.0-1.8) 05/22/21 05:36 Lymph # (Auto) 1.1 K/mm3 (1.2-5.4) L 05/22/21 05:36 [place] # (Auto) 0.1 K/mm3 (0.0-0.8) 05/22/21 05:36 Eos # (Auto) 0.0 K/mm3 (0.0-0.4) 05/22/21 05:36 Baso # (Auto) 0.0 K/mm3 (0.0-0.1) 05/22/21 05:36 Seg Neutrophils % 67.6 % (40.0-70.0) 05/22/21 05:36 Seg Neutrophils # 2.6 K/mm3 (1.8-7.7) 05/22/21 05:36 D-Dimer 275.23 ng/mlDDU (0-234) H 05/22/21 05:36 Sodium 136 mmol/L (137-145) L 05/22/21 05:36 Potassium 4.2 mmol/L (3.6-5.0) 05/22/21 05:36 Chloride 100.4 mmol/L (98-107) 05/22/21 05:36 Carbon Dioxide 26 mmol/L (22-30) 05/22/21 05:36 Anion Gap 14 mmol/L 05/22/21 05:36 BUN 7 mg/dL (7-17) 05/22/21 05:36 Creatinine 0.6 mg/dL (0.6-1.2) 05/22/21 05:36 Estimated GFR > 60 ml/min 05/22/21 05:36 BUN/Creatinine Ratio 12 % 05/22/21 05:36 Glucose 134 mg/dL (65-100) H 05/22/21 05:36 Hemoglobin A1c 5.8 % (4-6) 05/22/21 05:36 Calcium 8.6 mg/dL (8.4-10.2) 05/22/21 05:36 Ferritin 236.9 ng/mL (10.0-200.0) H 05/22/21 05:36 Total Bilirubin 0.20 mg/dL (0.1-1.2) 05/22/21 05:36 AST 40 units/L (5-40) 05/22/21 05:36 ALT 30 units/L (7-56) 05/22/21 05:36 Alkaline Phosphatase 67 units/L (35-129) 05/22/21 05:36 Lactate Dehydrogenase 227 units/L (91-180) H 05/22/21 05:36 C-Reactive Protein 0.70 mg/dL (0.00-1.30) 05/22/21 05:36 Total Protein 7.8 g/dL (6.3-8.2) 05/22/21 05:36 Albumin 3.8 g/dL (3.9-5) L 05/22/21 05:36 Albumin/Globulin Ratio 1.0 % 05/22/21 05:36 HCG, Quant < 2 mIU/mL (0-4) 05/21/21 16:56 Microbiology: Microbiology 05/21/21 16:56 Peripheral/Venous Blood Culture - Preliminary Culture in Progress 05/21/21 16:56 Peripheral/Venous Blood Culture - Preliminary Culture in Progress Active Medications - Current Medications Current Medications: Generic Name Dose Route Start Last Admin Trade Name Freq PRN Reason Stop Dose Admin Acetaminophen 650 mg 05/21/21 20:35 Acetaminophen 325 Mg Tab PO Q4H PRN Pain MILD(1-3)/Fever >100.5/HERRERA Al Hydrox/Mg Hydrox/Simethicone 30 ml 05/21/21 20:35 Alum-Mag Hydroxide-Simethicone [id number]/5ml Oral Liqd 30 Ml PO Q4H PRN Indigestion Ascorbic Acid 500 mg 05/22/21 10:00 Ascorbic Acid 500 Mg Tab PO QDAY [facility] Cholecalciferol 5,000 unit 05/22/21 10:00 Cholecalciferol (Vit D3) 5,000 Unit Tab PO DAILY [facility] Cholecalciferol 1,000 unit 05/22/21 10:00 Cholecalciferol (Vit D3) 1000 Unit (25 Mcg) Tab PO QDAY [facility] Dexamethasone 6 mg 05/22/21 10:00 Dexamethasone 4 Mg/Ml Vial IV DAILY [facility] Enoxaparin Sodium 40 mg 05/21/21 22:00 05/21/21 23:51 Enoxaparin 40 Mg/0.4 Ml Inj SUB-Q 40 mg QDAY@2200 FRANKY Administration Famotidine 20 mg 05/21/21 22:00 05/22/21 00:51 Famotidine 20 Mg/2 Ml Inj IV 20 mg BID FRANKY Administration Guaifenesin 20 ml 05/21/21 22:34 05/21/21 23:50 Guaifenesin Dm 200/20 Mg Oral Liqd 10 Ml PO 20 ml Q4H PRN Administration Cough Hydromorphone HCl 0.5 mg 05/22/21 01:29 05/22/21 01:35 Hydromorphone 1 Mg/1 Ml Inj IV 0.5 mg Q3H PRN Administration Pain , Severe (7-10) Sodium Chloride 1,000 mls @ 42 mls/hr 05/21/21 20:45 Nacl 0.9% 1000 Ml IV DIRECT [facility] Azithromycin 500 mg in 250 mls @ 250 mls/hr 05/22/21 10:00 Zithromax/Ns IV Q24H [facility] Ceftriaxone Sodium 1 gm in 50 mls @ 100 mls/hr 05/22/21 10:00 Rocephin/Ns 1 Gm/50 Ml IV Q24H [facility] Protocol Ibuprofen 600 mg 05/21/21 20:35 05/22/21 00:55 Ibuprofen 600 Mg Tab PO 600 mg Q6H PRN Administration Pain, Mild (1-3) Magnesium Hydroxide 30 ml 05/21/21 20:35 Magnesium Hydroxide (Mom) Oral Liqd Udc PO Q4H PRN Constipation Metoclopramide HCl 10 mg 05/21/21 20:35 Metoclopramide 10 Mg/2 Ml Inj IV Q6H PRN Nausea And Vomiting Naloxone HCl 0.1 mg 05/21/21 20:35 Naloxone 0.4 Mg/1 Ml Inj IV Q2MIN PRN Res Rate </= 8 or 02 SAT < 92% Ondansetron HCl 4 mg 05/21/21 20:35 Ondansetron 4 Mg/2 Ml Inj IV Q8H PRN Nausea And Vomiting Senna 8.6 mg 05/21/21 20:35 Sennosides 8.6 Mg Tab PO Q12HR PRN Constipation Sodium Chloride 10 ml 05/21/21 22:00 05/21/21 22:05 Sodium Chloride 0.9% 10 Ml Flush Syringe IV 10 ml BID FRANKY Administration Zinc Sulfate 220 mg 05/22/21 10:00 Zinc Sulfate 220 Mg Cap PO QDAY [facility]
[2021-05-22] MEDS: AZITHROMYCIN/NS 500 MG/250 ML 500 MG/250 ML BAG IV SCH (13:27)
[2021-05-22] MEDS: guaiFENesin DM 200/20 MG ORAL LIQD 10 ML PO PRN (22:07)
[2021-05-23] MEDS: FAMOTIDINE 20 MG/2 ML INJ IV SCH ×3 (00:43→22:17)
[2021-05-23] MEDS: ENOXAPARIN 40 MG/0.4 ML INJ SUB-Q SCH ×2 (00:43→22:17)
[2021-05-23] MEDS: IBUPROFEN 600 MG TAB PO PRN (00:45)
[2021-05-23] MEDS: HYDROmorphone 1 MG/1 ML INJ IV PRN ×3 (06:30→22:15)
[2021-05-23] MEDS: guaiFENesin DM 200/20 MG ORAL LIQD 10 ML PO PRN ×3 (06:35→22:13)
[2021-05-23] MEDS: CHOLECALCIFEROL (VIT D3) 1000 UNIT (25 mcg) TAB PO SCH (09:16)
[2021-05-23] MEDS: CHOLECALCIFEROL (VIT D3) 5,000 UNIT TAB PO SCH (09:16)
[2021-05-23] MEDS: dexAMETHasone 4 MG/ML VIAL IV SCH (09:16)
[2021-05-23] MEDS: ZINC SULFATE 220 MG CAP PO SCH (09:16)
[2021-05-23] MEDS: ASCORBIC ACID 500 MG TAB PO SCH (09:16)
[2021-05-23] MEDS: cefTRIAXone/NS 1 GM/50 ML 1 GM/50 ML BAG IV SCH (09:17)
[2021-05-23] MEDS: AZITHROMYCIN/NS 500 MG/250 ML 500 MG/250 ML BAG IV SCH (09:17)
--- NOTE | 2021-05-23 11:20 | Progress Note ---
Assessment and Plan - Patient Problems (1) Coronavirus infection Current Visit: Yes Status: Acute Plan to address problem: Coronavirus protocol: IV antibiotic therapy, IV steroid therapy, supplemental oxygen, pulse oximetry, nebulizer therapy, vitamin C therapy, vitamin D therapy, zinc therapy, prophylactic anticoagulation. (2) Obesity hypoventilation syndrome Current Visit: Yes Status: Acute Plan to address problem: Balanced diet, increase physical activity at discharge, outpatient pulmonary follow-up for sleep study. (3) Acute respiratory failure with hypoxia Current Visit: Yes Status: Acute Plan to address problem: Supplemental oxygen, pulse oximetry, nebulizer therapy, treat coronavirus infection, prone positioning while in bed, (4) Multifocal pneumonia Current Visit: Yes Status: Acute Plan to address problem: Pneumonia protocol: Chest x-ray, CBC, CMP, IV antibiotic therapy, supplemental oxygen, pulse oximetry, nebulizer therapy, blood culture. (5) DVT prophylaxis Current Visit: Yes Status: Acute Plan to address problem: SCDs bilateral lower extremities while in bed, prophylactic anticoagulation History Interval history: 25 YO Female with Obesity Hypoventilation Syndrome, SMO, Pneumonia, COVID 19, acute hypoxemic respiratory failure, volume depletion. Patient convalesced well overnight. Patient knowledges persistent shortness of breath. Patient denies pain. No reported nursing events. Patient reports that she feels better today than on admission. Hospitalist Physical - Constitutional Vitals: Temp Pulse Resp BP Pulse Ox 99.0 F 99 H 20 113/62 92 05/23/21 04:38 05/23/21 04:38 05/23/21 04:38 05/23/21 04:38 05/23/21 04:38 General appearance: Present: mild distress, obese - EENT Eyes: Present: PERRL, EOM intact ENT: hearing intact - Neck Neck: Present: supple - Respiratory Respiratory effort: labored Respiratory: bilateral: diminished - Cardiovascular Rhythm: regular Heart Sounds: Present: S1 & S2 - Extremities Extremities: no ischemia Extremity abnormal: edema Peripheral Pulses: within normal limits - Abdominal General gastrointestinal: soft, non-tender, non-distended - Integumentary Integumentary: Present: clear, dry - Psychiatric Psychiatric: appropriate mood/affect, cooperative - Neurologic Neurologic: CNII-XII intact Results - Labs CBC & Chem 7: 05/22/21 05:36 05/22/21 05:36 Labs: Laboratory Last Values WBC 3.9 K/mm3 (4.5-11.0) L 05/22/21 05:36 RBC 4.27 M/mm3 (3.65-5.03) 05/22/21 05:36 Hgb 12.4 gm/dl (10.1-14.3) 05/22/21 05:36 Hct 37.2 % (30.3-42.9) 05/22/21 05:36 MCV 87 fl (79-97) 05/22/21 05:36 MCH 29 pg (28-32) 05/22/21 05:36 MCHC 33 % (30-34) 05/22/21 05:36 RDW 15.3 % (13.2-15.2) H 05/22/21 05:36 Plt Count 231 K/mm3 (140-440) 05/22/21 05:36 Lymph % (Auto) 28.4 % (13.4-35.0) 05/22/21 05:36 [place] % (Auto) 3.8 % (0.0-7.3) 05/22/21 05:36 Eos % (Auto) 0.0 % (0.0-4.3) 05/22/21 05:36 Baso % (Auto) 0.2 % (0.0-1.8) 05/22/21 05:36 Lymph # (Auto) 1.1 K/mm3 (1.2-5.4) L 05/22/21 05:36 [place] # (Auto) 0.1 K/mm3 (0.0-0.8) 05/22/21 05:36 Eos # (Auto) 0.0 K/mm3 (0.0-0.4) 05/22/21 05:36 Baso # (Auto) 0.0 K/mm3 (0.0-0.1) 05/22/21 05:36 Seg Neutrophils % 67.6 % (40.0-70.0) 05/22/21 05:36 Seg Neutrophils # 2.6 K/mm3 (1.8-7.7) 05/22/21 05:36 D-Dimer 275.23 ng/mlDDU (0-234) H 05/22/21 05:36 Sodium 136 mmol/L (137-145) L 05/22/21 05:36 Potassium 4.2 mmol/L (3.6-5.0) 05/22/21 05:36 Chloride 100.4 mmol/L (98-107) 05/22/21 05:36 Carbon Dioxide 26 mmol/L (22-30) 05/22/21 05:36 Anion Gap 14 mmol/L 05/22/21 05:36 BUN 7 mg/dL (7-17) 05/22/21 05:36 Creatinine 0.6 mg/dL (0.6-1.2) 05/22/21 05:36 Estimated GFR > 60 ml/min 05/22/21 05:36 BUN/Creatinine Ratio 12 % 05/22/21 05:36 Glucose 134 mg/dL (65-100) H 05/22/21 05:36 Hemoglobin A1c 5.8 % (4-6) 05/22/21 05:36 Calcium 8.6 mg/dL (8.4-10.2) 05/22/21 05:36 Ferritin 236.9 ng/mL (10.0-200.0) H 05/22/21 05:36 Total Bilirubin 0.20 mg/dL (0.1-1.2) 05/22/21 05:36 AST 40 units/L (5-40) 05/22/21 05:36 ALT 30 units/L (7-56) 05/22/21 05:36 Alkaline Phosphatase 67 units/L (35-129) 05/22/21 05:36 Lactate Dehydrogenase 227 units/L (91-180) H 05/22/21 05:36 C-Reactive Protein 0.70 mg/dL (0.00-1.30) 05/22/21 05:36 Total Protein 7.8 g/dL (6.3-8.2) 05/22/21 05:36 Albumin 3.8 g/dL (3.9-5) L 05/22/21 05:36 Albumin/Globulin Ratio 1.0 % 05/22/21 05:36 Procalcitonin < 0.05 ng/mL (<0.15) 05/22/21 05:36 HCG, Quant < 2 mIU/mL (0-4) 05/21/21 16:56 Coronavirus (PCR) Positive (Negative) A 05/22/21 08:40 Microbiology: Microbiology 05/21/21 16:56 Peripheral/Venous Blood Culture - Preliminary NO GROWTH AFTER 24 HOURS 05/21/21 16:56 Peripheral/Venous Blood Culture - Preliminary NO GROWTH AFTER 24 HOURS Olsen/IV: Voiding Method Toilet Active Medications - Current Medications Current Medications: Generic Name Dose Route Start Last Admin Trade Name Freq PRN Reason Stop Dose Admin Acetaminophen 650 mg 05/21/21 20:35 Acetaminophen 325 Mg Tab PO Q4H PRN Pain MILD(1-3)/Fever >100.5/HERRERA Al Hydrox/Mg Hydrox/Simethicone 30 ml 05/21/21 20:35 Alum-Mag Hydroxide-Simethicone [id number]/5ml Oral Liqd 30 Ml PO Q4H PRN Indigestion Ascorbic Acid 500 mg 05/22/21 10:00 05/23/21 09:16 Ascorbic Acid 500 Mg Tab PO 500 mg QDAY [facility] Administration Cholecalciferol 5,000 unit 05/22/21 10:00 05/23/21 09:16 Cholecalciferol (Vit D3) 5,000 Unit Tab PO 5,000 unit DAILY [facility] Administration Cholecalciferol 1,000 unit 05/22/21 10:00 05/23/21 09:16 Cholecalciferol (Vit D3) 1000 Unit (25 Mcg) Tab PO 1,000 unit QDAY [facility] Administration Dexamethasone 6 mg 05/22/21 10:00 05/23/21 09:16 Dexamethasone 4 Mg/Ml Vial IV 6 mg DAILY [facility] Administration Enoxaparin Sodium 40 mg 05/21/21 22:00 05/23/21 00:43 Enoxaparin 40 Mg/0.4 Ml Inj SUB-Q 40 mg QDAY@2200 FRANK[facility] Administration Famotidine 20 mg 05/21/21 22:00 05/23/21 09:16 Famotidine 20 Mg/2 Ml Inj IV 20 mg BID FR[facility] Administration Guaifenesin 20 ml 05/21/21 22:34 05/23/21 06:35 Guaifenesin Dm 200/20 Mg Oral Liqd 10 Ml PO 10 ml Q4H PRN Administration Cough Hydromorphone HCl 0.5 mg 05/22/21 01:29 05/23/21 06:30 Hydromorphone 1 Mg/1 Ml Inj IV 0.5 mg Q3H PRN Administration Pain , Severe (7-10) Sodium Chloride 1,000 mls @ 42 mls/hr 05/21/21 20:45 Nacl 0.9% 1000 Ml IV DIRECT [facility] Azithromycin 500 mg in 250 mls @ 250 mls/hr 05/22/21 10:00 05/23/21 09:17 Zithromax/Ns IV 250 mls/hr Q24H [facility] Administration Ceftriaxone Sodium 1 gm in 50 mls @ 100 mls/hr 05/22/21 10:00 05/23/21 09:17 Rocephin/Ns 1 Gm/50 Ml IV 100 mls/hr Q24H [facility] Administration Protocol Ibuprofen 600 mg 05/21/21 20:35 05/23/21 00:45 Ibuprofen 600 Mg Tab PO 600 mg Q6H PRN Administration Pain, Mild (1-3) Magnesium Hydroxide 30 ml 05/21/21 20:35 Magnesium Hydroxide (Mom) Oral Liqd Udc PO Q4H PRN Constipation Metoclopramide HCl 10 mg 05/21/21 20:35 Metoclopramide 10 Mg/2 Ml Inj IV Q6H PRN Nausea And Vomiting Naloxone HCl 0.1 mg 05/21/21 20:35 Naloxone 0.4 Mg/1 Ml Inj IV Q2MIN PRN Res Rate </= 8 or 02 SAT < 92% Ondansetron HCl 4 mg 05/21/21 20:35 05/23/21 10:08 Ondansetron 4 Mg/2 Ml Inj IV 4 mg Q8H PRN Administration Nausea And Vomiting Senna 8.6 mg 05/21/21 20:35 Sennosides 8.6 Mg Tab PO Q12HR PRN Constipation Sodium Chloride 10 ml 05/21/21 22:00 05/23/21 09:16 Sodium Chloride 0.9% 10 Ml Flush Syringe IV 10 ml BID FRANKY Administration Zinc Sulfate 220 mg 05/22/21 10:00 05/23/21 09:16 Zinc Sulfate 220 Mg Cap PO 220 mg QDAY [facility] Administration
[2021-05-23] MEDS ORDERED: ALBUTEROL 2.5 MG/3 ML NEBU IH SCH (13:00)
[2021-05-23] MEDS ORDERED: ALBUTEROL 2.5 MG/3 ML NEBU IH PRN (13:30)
--- NOTE | 2021-05-23 14:36 | Progress Note ---
Assessment and Plan Cultures: SARS CoV2 PCR: positive 05/21/2021 blood culture: no growth A/P: 25-year-old female, unvaccinated for COVID-19 with: #Bilateral pneumonia secondary to COVID-19 #Acute hypoxic respiratory failure: On nasal cannula #Mild leukopenia: Possibly viral illness related. #Morbid obesity Recs: IV/PO Dexamethasone 8 mg daily x 10 days, higher dose due to morbid obesity IV remdesivir added procalcitonin is low, antibiotics discontinued prophylactic anticoagulation based on d-dimer per hospital protocol trend ferritin, LDH, d-dimer, CRP every 2-3 days for risk stratification and to assess disease progression ambulatory sats in AM, if clears, can discharge to complete steroid course Ton Medina MD, FACP [facility] ([facility] O: [phone] F: [phone] Subjective Date of service: 05/23/21 Interval history: Afebrile. COVID-19 PCR came back positive. On oxygen by nasal cannula at 2 L/min. Objective - Exam Narrative Exam: Physical Exam (reviewed in chart to minimize risk of transmission) Constitutional: deferred Head, Ears, Nose: deferred Eyes: deferred Neck: deferred Oral: deferred Cardiovascular: deferred Respiratory: deferred GI: deferred Musculoskeletal: deferred Skin: deferred Hem/Lymphatic: deferred Psych: deferred Neurological: deferred - Constitutional Vitals: Vital Signs Temp Pulse Resp BP Pulse Ox 99.0 F 99 H 20 113/62 94 05/23/21 04:38 05/23/21 04:38 05/23/21 04:38 05/23/21 04:38 05/23/21 12:56 Temperature -Last 24 Hours Temperature 99.0 F Temperature 98.2 F Temperature 98.1 F - Labs CBC & Chem 7: 05/22/21 05:36 05/22/21 05:36 Labs: Abnormal lab results 05/22/21 Range/Units 08:40 Coronavirus (PCR) Positive A (Negative)
[2021-05-23] MEDS ORDERED: REMDESIVIR 200 MG in SODIUM CHLORIDE 0.9% 250ML 250 ML IV ONE (16:00)
[2021-05-23] MEDS: SODIUM CHLORIDE 0.9% 50 ML IVPB IV SCH ×2 (16:18→22:17)
[2021-05-24 01:15] LABS: Alanine Aminotransferase 24 units/L (7-56); Albumin 3.3 g/dL (3.9-5); Blood Urea Nitrogen 6 mg/dL (7-17); Calcium 8.2 mg/dL (8.4-10.2); Hemolysis Index 7
[2021-05-24 01:18] LABS: BUN/Creatinine Ratio 10
[2021-05-24] MEDS: HYDROmorphone 1 MG/1 ML INJ IV PRN ×3 (05:58→17:57)
[2021-05-24] MEDS: guaiFENesin DM 200/20 MG ORAL LIQD 10 ML PO PRN (05:58)
--- NOTE | 2021-05-24 09:39 | Progress Note ---
Assessment and Plan Assessment and plan: (1) Coronavirus infection Coronavirus protocol: Covid testing PCR positive on 05/22, dexamethasone 8 mg x10 days, supplemental oxygen, pulse oximetry, nebulizer therapy, vitamin C therapy, vitamin D therapy, zinc therapy, prophylactic anticoagulation. ID following. Continue to trend inflammatory markers. (2) Obesity hypoventilation syndrome Balanced diet, increase physical activity at discharge, outpatient pulmonary follow-up for sleep study. (3) Acute respiratory failure with hypoxia Supplemental oxygen, pulse oximetry, nebulizer therapy, treat coronavirus infection, prone positioning while in bed, (4) Multifocal pneumonia Pneumonia protocol: Chest x-ray, CBC, CMP, IV antibiotic therapy was discontinued due to low procalcitonin, supplemental oxygen, pulse oximetry, nebulizer therapy, blood culture. (5) leukopenia (6) DVT prophylaxis SCDs bilateral lower extremities while in bed, prophylactic anticoagulation History Interval history: 25 YO Female with Obesity Hypoventilation Syndrome, SMO, Pneumonia, COVID 19, acute hypoxemic respiratory failure, volume depletion. Patient convalesced well overnight. Patient knowledges persistent shortness of breath. Patient denies pain. No reported nursing events. No new issues overnight. Hospitalist Physical - Constitutional Vitals: Temp Pulse Resp BP Pulse Ox 100.0 F H 108 H 18 107/59 91 05/24/21 07:18 05/24/21 07:18 05/24/21 07:18 05/24/21 07:18 05/24/21 07:18 General appearance: Present: mild distress, obese - EENT Eyes: Present: PERRL, EOM intact ENT: hearing intact, clear oral mucosa, dentition normal - Neck Neck: Present: supple, normal ROM - Respiratory Respiratory effort: normal Respiratory: bilateral: CTA - Cardiovascular Rhythm: regular Heart Sounds: Present: S1 & S2. Absent: gallop, rub - Extremities Extremities: no ischemia, No edema, Full ROM - Abdominal General gastrointestinal: soft, non-tender, non-distended, normal bowel sounds - Integumentary Integumentary: Present: clear, warm, dry - Neurologic Neurologic: CNII-XII intact, moves all extremities Results - Labs CBC & Chem 7: 05/22/21 05:36 05/24/21 00:17 Labs: Laboratory Last Values WBC 3.9 K/mm3 (4.5-11.0) L 05/22/21 05:36 RBC 4.27 M/mm3 (3.65-5.03) 05/22/21 05:36 Hgb 12.4 gm/dl (10.1-14.3) 05/22/21 05:36 Hct 37.2 % (30.3-42.9) 05/22/21 05:36 MCV 87 fl (79-97) 05/22/21 05:36 MCH 29 pg (28-32) 05/22/21 05:36 MCHC 33 % (30-34) 05/22/21 05:36 RDW 15.3 % (13.2-15.2) H 05/22/21 05:36 Plt Count 231 K/mm3 (140-440) 05/22/21 05:36 Lymph % (Auto) 28.4 % (13.4-35.0) 05/22/21 05:36 [place] % (Auto) 3.8 % (0.0-7.3) 05/22/21 05:36 Eos % (Auto) 0.0 % (0.0-4.3) 05/22/21 05:36 Baso % (Auto) 0.2 % (0.0-1.8) 05/22/21 05:36 Lymph # (Auto) 1.1 K/mm3 (1.2-5.4) L 05/22/21 05:36 [place] # (Auto) 0.1 K/mm3 (0.0-0.8) 05/22/21 05:36 Eos # (Auto) 0.0 K/mm3 (0.0-0.4) 05/22/21 05:36 Baso # (Auto) 0.0 K/mm3 (0.0-0.1) 05/22/21 05:36 Seg Neutrophils % 67.6 % (40.0-70.0) 05/22/21 05:36 Seg Neutrophils # 2.6 K/mm3 (1.8-7.7) 05/22/21 05:36 D-Dimer 275.23 ng/mlDDU (0-234) H 05/22/21 05:36 Sodium 138 mmol/L (137-145) 05/24/21 00:17 Potassium 3.8 mmol/L (3.6-5.0) 05/24/21 00:17 Chloride 103.8 mmol/L (98-107) 05/24/21 00:17 Carbon Dioxide 25 mmol/L (22-30) 05/24/21 00:17 Anion Gap 13 mmol/L 05/24/21 00:17 BUN 6 mg/dL (7-17) L 05/24/21 00:17 Creatinine 0.6 mg/dL (0.6-1.2) 05/24/21 00:17 Estimated GFR > 60 ml/min 05/24/21 00:17 BUN/Creatinine Ratio 10 % 05/24/21 00:17 Glucose 107 mg/dL (65-100) H 05/24/21 00:17 Hemoglobin A1c 5.8 % (4-6) 05/22/21 05:36 Calcium 8.2 mg/dL (8.4-10.2) L 05/24/21 00:17 Ferritin 236.9 ng/mL (10.0-200.0) H 05/22/21 05:36 Total Bilirubin 0.20 mg/dL (0.1-1.2) 05/24/21 00:17 AST 28 units/L (5-40) 05/24/21 00:17 ALT 24 units/L (7-56) 05/24/21 00:17 Alkaline Phosphatase 55 units/L (35-129) 05/24/21 00:17 Lactate Dehydrogenase 227 units/L (91-180) H 05/22/21 05:36 C-Reactive Protein 0.70 mg/dL (0.00-1.30) 05/22/21 05:36 Total Protein 7.4 g/dL (6.3-8.2) 05/24/21 00:17 Albumin 3.3 g/dL (3.9-5) L 05/24/21 00:17 Albumin/Globulin Ratio 0.8 % 05/24/21 00:17 Procalcitonin < 0.05 ng/mL (<0.15) 05/22/21 05:36 HCG, Quant < 2 mIU/mL (0-4) 05/21/21 16:56 Coronavirus (PCR) Positive (Negative) A 05/22/21 08:40 Microbiology: Microbiology 05/21/21 16:56 Peripheral/Venous Blood Culture - Preliminary NO GROWTH AFTER 48 HOURS 05/21/21 16:56 Peripheral/Venous Blood Culture - Preliminary NO GROWTH AFTER 48 HOURS Olsen/IV: Voiding Method Toilet Active Medications - Current Medications Current Medications: Generic Name Dose Route Start Last Admin Trade Name Freq PRN Reason Stop Dose Admin Acetaminophen 650 mg 05/21/21 20:35 Acetaminophen 325 Mg Tab PO Q4H PRN Pain MILD(1-3)/Fever >100.5/HERRERA Al Hydrox/Mg Hydrox/Simethicone 30 ml 05/21/21 20:35 Alum-Mag Hydroxide-Simethicone [id number]/5ml Oral Liqd 30 Ml PO Q4H PRN Indigestion Albuterol 2.5 mg 05/23/21 13:30 05/23/21 13:44 Albuterol 2.5 Mg/3 Ml Nebu IH 2.5 mg Q4HRT PRN Administration Shortness Of Breath Ascorbic Acid 500 mg 05/22/21 10:00 05/23/21 09:16 Ascorbic Acid 500 Mg Tab PO 500 mg QDAY [facility] Administration Cholecalciferol 5,000 unit 05/22/21 10:00 05/23/21 09:16 Cholecalciferol (Vit D3) 5,000 Unit Tab PO 5,000 unit DAILY [facility] Administration Cholecalciferol 1,000 unit 05/22/21 10:00 05/23/21 09:16 Cholecalciferol (Vit D3) 1000 Unit (25 Mcg) Tab PO 1,000 unit QDAY [facility] Administration Dexamethasone 8 mg 05/23/21 14:37 Dexamethasone 4 Mg/Ml Vial IV DAILY [facility] Enoxaparin Sodium 40 mg 05/21/21 22:00 05/23/21 22:17 Enoxaparin 40 Mg/0.4 Ml Inj SUB-Q 40 mg QDAY@2200 FRANKY Administration Famotidine 20 mg 05/21/21 22:00 05/23/21 22:17 Famotidine 20 Mg/2 Ml Inj IV 20 mg BID FRANKY Administration Guaifenesin 20 ml 05/21/21 22:34 05/24/21 05:58 Guaifenesin Dm 200/20 Mg Oral Liqd 10 Ml PO 20 ml Q4H PRN Administration Cough Hydromorphone HCl 0.5 mg 05/22/21 01:29 05/24/21 05:58 Hydromorphone 1 Mg/1 Ml Inj IV 0.5 mg Q3H PRN Administration Pain , Severe (7-10) Sodium Chloride 1,000 mls @ 42 mls/hr 05/21/21 20:45 Nacl 0.9% 1000 Ml IV DIRECT FRANKY REMDESIVIR 100 mg/ Sodium 250 mls @ 500 mls/hr 05/24/21 21:00 Chloride IV 05/27/21 21:29 Q24HR@2100 [facility] Ibuprofen 600 mg 05/21/21 20:35 05/23/21 00:45 Ibuprofen 600 Mg Tab PO 600 mg Q6H PRN Administration Pain, Mild (1-3) Magnesium Hydroxide 30 ml 05/21/21 20:35 Magnesium Hydroxide (Mom) Oral Liqd Udc PO Q4H PRN Constipation Metoclopramide HCl 10 mg 05/21/21 20:35 Metoclopramide 10 Mg/2 Ml Inj IV Q6H PRN Nausea And Vomiting Naloxone HCl 0.1 mg 05/21/21 20:35 Naloxone 0.4 Mg/1 Ml Inj IV Q2MIN PRN Res Rate </= 8 or 02 SAT < 92% Ondansetron HCl 4 mg 05/21/21 20:35 05/23/21 10:08 Ondansetron 4 Mg/2 Ml Inj IV 4 mg Q8H PRN Administration Nausea And Vomiting Senna 8.6 mg 05/21/21 20:35 Sennosides 8.6 Mg Tab PO Q12HR PRN Constipation Sodium Chloride 10 ml 05/21/21 22:00 05/23/21 22:18 Sodium Chloride 0.9% 10 Ml Flush Syringe IV 10 ml BID FRANKY Administration Sodium Chloride 50 ml 05/23/21 16:00 05/23/21 22:17 Sodium Chloride 0.9% 50 Ml Ivpb IV 05/26/21 21:01 Not Given Q24HR@2100 [facility] Zinc Sulfate 220 mg 05/22/21 10:00 05/23/21 09:16 Zinc Sulfate 220 Mg Cap PO 220 mg QDAY FRANKY Administration
[2021-05-24] MEDS: dexAMETHasone 4 MG/ML VIAL IV SCH (10:17)
[2021-05-24] MEDS: CHOLECALCIFEROL (VIT D3) 5,000 UNIT TAB PO SCH (10:17)
[2021-05-24] MEDS: ASCORBIC ACID 500 MG TAB PO SCH (10:17)
[2021-05-24] MEDS: FAMOTIDINE 20 MG/2 ML INJ IV SCH ×2 (10:17→22:48)
[2021-05-24] MEDS: ZINC SULFATE 220 MG CAP PO SCH (10:17)
[2021-05-24] MEDS: CHOLECALCIFEROL (VIT D3) 1000 UNIT (25 mcg) TAB PO SCH (10:18)
--- NOTE | 2021-05-24 10:22 | Progress Note ---
Assessment and Plan Cultures: SARS CoV2 PCR: positive 05/21/2021 blood culture: no growth A/P: 25-year-old female, unvaccinated for COVID-19 with: #Bilateral pneumonia secondary to COVID-19 #Acute hypoxic respiratory failure: On nasal cannula #Mild leukopenia: Possibly viral illness related. #Morbid obesity Recs: IV/PO Dexamethasone 8 mg daily x 10 days, higher dose due to morbid obesity IV remdesivir added prophylactic anticoagulation based on d-dimer per hospital protocol trend ferritin, LDH, d-dimer, CRP every 2-3 days for risk stratification and to assess disease progression 6MWT prior to discharge Steve Nelson MD [facility] O: [phone] F: [phone] Subjective Date of service: 05/24/21 Interval history: Afebrile, mildly leukopenic Objective - Exam Narrative Exam: Physical exam deferred to reduce risk of transmission of COVID-19. Please refer to primary team's note. - Constitutional Vitals: Vital Signs Temp Pulse Resp BP Pulse Ox 100.0 F H 108 H 18 107/59 91 05/24/21 07:18 05/24/21 07:18 05/24/21 07:18 05/24/21 07:18 05/24/21 07:18 Temperature -Last 24 Hours Temperature 100.0 F Temperature 99.4 F - Labs CBC & Chem 7: 05/22/21 05:36 05/24/21 00:17 Labs: Abnormal lab results 05/24/21 Range/Units 00:17 BUN 6 L (7-17) mg/dL Glucose 107 H (65-100) mg/dL Calcium 8.2 L (8.4-10.2) mg/dL Albumin 3.3 L (3.9-5) g/dL
[2021-05-24 16:22] LABS: Alanine Aminotransferase 25 units/L (7-56); Blood Urea Nitrogen 8 mg/dL (7-17); Calcium 8.3 mg/dL (8.4-10.2); Hemolysis Index 164
[2021-05-24 16:26] LABS: BUN/Creatinine Ratio 13
[2021-05-24] MEDS: SODIUM CHLORIDE 0.9% 50 ML IVPB IV SCH (22:47)
[2021-05-24] MEDS: ENOXAPARIN 40 MG/0.4 ML INJ SUB-Q SCH (22:47)
[2021-05-24] MEDS: REMDESIVIR 100 MG in SODIUM CHLORIDE 0.9% 250ML 250 ML IV SCH (22:47)
[2021-05-25] MEDS: guaiFENesin DM 200/20 MG ORAL LIQD 10 ML PO PRN ×2 (00:56→22:37)
[2021-05-25] MEDS: HYDROmorphone 1 MG/1 ML INJ IV PRN ×2 (06:54→17:48)
[2021-05-25] MEDS: FAMOTIDINE 20 MG/2 ML INJ IV SCH ×2 (09:50→22:37)
[2021-05-25] MEDS: dexAMETHasone 4 MG/ML VIAL IV SCH (09:50)
[2021-05-25] MEDS: CHOLECALCIFEROL (VIT D3) 5,000 UNIT TAB PO SCH (09:50)
[2021-05-25] MEDS: CHOLECALCIFEROL (VIT D3) 1000 UNIT (25 mcg) TAB PO SCH (09:51)
[2021-05-25] MEDS: ZINC SULFATE 220 MG CAP PO SCH (09:51)
[2021-05-25] MEDS: ASCORBIC ACID 500 MG TAB PO SCH (09:51)
--- NOTE | 2021-05-25 12:12 | Progress Note ---
Assessment and Plan Cultures: SARS CoV2 PCR: positive 05/21/2021 blood culture: no growth A/P: 25-year-old female, unvaccinated for COVID-19 with: #Bilateral pneumonia secondary to COVID-19 #Acute hypoxic respiratory failure: On nasal cannula #Mild leukopenia: Possibly viral illness related. #Morbid obesity Recs: IV/PO Dexamethasone 8 mg daily x 10 days, higher dose due to morbid obesity IV remdesivir added. Complete 5 days. prophylactic anticoagulation based on d-dimer per hospital protocol trend ferritin, LDH, d-dimer, CRP every 2-3 days for risk stratification and to assess disease progression 6MWT prior to discharge. If improved okay to discharge prior to completing remdesivir course Steve Nelson MD [facility] ([facility]) O: [phone] F: [phone] Subjective Date of service: 05/25/21 Interval history: Afebrile, no acute change. On Venturi mask. Objective - Exam Narrative Exam: Physical exam deferred to reduce risk of transmission of COVID-19. Please refer to primary team's note. - Constitutional Vitals: Vital Signs Temp Pulse Resp BP Pulse Ox 98.1 F 99 H 18 120/81 94 05/25/21 00:00 05/25/21 01:20 05/25/21 02:45 05/25/21 01:50 05/25/21 02:45 Temperature -Last 24 Hours Temperature 98.1 F - Labs CBC & Chem 7: 05/22/21 05:36 05/24/21 15:37 Labs: Abnormal lab results 05/24/21 Range/Units 15:37 Sodium 133 L (137-145) mmol/L Carbon Dioxide 20 L (22-30) mmol/L Glucose 133 H (65-100) mg/dL Calcium 8.3 L (8.4-10.2) mg/dL Albumin 3.0 L (3.9-5) g/dL
--- NOTE | 2021-05-25 13:44 | Progress Note ---
Assessment and Plan - Patient Problems (1) Acute respiratory failure with hypoxia Current Visit: Yes Status: Acute Plan to address problem: Patient with acute hypoxic respiratory failure. Still unable to wean significantly remains on 15 L O2. Continue to follow inflammatory markers. Addition continue steroids dexamethasone Zinc/vitamin C/vitamin D Prone position (2) Coronavirus infection Current Visit: Yes Status: Acute Plan to address problem: Patient Covid positive (3) DVT prophylaxis Current Visit: Yes Status: Acute (4) Dehydration Current Visit: Yes Status: Acute Plan to address problem: Resolved with IV volume replacement. No diarrhea no nausea vomiting. (5) Obesity hypoventilation syndrome Current Visit: Yes Status: Acute Plan to address problem: May be etiology for patient not improving quickly. Will need outpatient sleep study. Also adequate weight loss and nutritional evaluation. Subjective Date of service: 05/25/21 Principal diagnosis: COVID-19 pneumonia Interval history: Patient resting comfortably remains hypoxic requiring 15 L of O2. Otherwise hospital course unremarkable. Patient resting comfortably. Objective - Constitutional Vitals: Vital Signs - 12hr 05/25/21 05/25/21 05/25/21 01:50 02:45 03:50 Temperature Pulse Rate Respiratory 18 18 26 H Rate Blood Pressure 120/81 120/81 O2 Sat by Pulse 94 Oximetry 05/25/21 05/25/21 05/25/21 04:00 04:10 04:20 Temperature Pulse Rate Respiratory 26 H 22 29 H Rate Blood Pressure 120/81 120/81 120/81 O2 Sat by Pulse 89 69 L 64 L Oximetry 05/25/21 05/25/21 05/25/21 04:30 04:40 04:50 Temperature Pulse Rate Respiratory 28 H 27 H 15 Rate Blood Pressure 134/83 134/83 120/81 O2 Sat by Pulse 64 L 65 L 73 L Oximetry 05/25/21 05/25/21 05/25/21 05:00 05:10 05:20 Temperature Pulse Rate 93 H Respiratory 20 29 H 19 Rate Blood Pressure 120/81 120/81 120/81 O2 Sat by Pulse 86 89 Oximetry 05/25/21 05/25/21 05/25/21 05:30 05:40 05:50 Temperature Pulse Rate Respiratory 33 H 17 23 Rate Blood Pressure 120/81 120/81 120/81 O2 Sat by Pulse 90 82 L 79 L Oximetry 05/25/21 05/25/21 05/25/21 06:00 06:10 06:20 Temperature Pulse Rate Respiratory Rate Blood Pressure 149/97 149/97 149/97 O2 Sat by Pulse 81 L 86 80 L Oximetry 05/25/21 05/25/21 05/25/21 06:30 06:40 06:52 Temperature Pulse Rate Respiratory Rate Blood Pressure 149/97 149/97 149/97 O2 Sat by Pulse 80 L 83 L 97 Oximetry 05/25/21 05/25/21 05/25/21 07:00 07:10 07:22 Temperature Pulse Rate Respiratory Rate Blood Pressure 149/97 149/97 149/97 O2 Sat by Pulse 83 L 81 L 78 L Oximetry 05/25/21 05/25/21 05/25/21 07:32 07:40 07:52 Temperature Pulse Rate Respiratory Rate Blood Pressure 154/115 154/115 154/115 O2 Sat by Pulse 84 78 L 89 Oximetry 05/25/21 05/25/21 05/25/21 08:00 08:10 08:20 Temperature Pulse Rate Respiratory Rate Blood Pressure 154/115 154/115 154/115 O2 Sat by Pulse 93 89 92 Oximetry 05/25/21 05/25/21 05/25/21 08:30 08:42 08:52 Temperature Pulse Rate Respiratory Rate Blood Pressure 154/115 154/115 154/115 O2 Sat by Pulse 90 84 86 Oximetry 05/25/21 05/25/21 05/25/21 09:00 09:10 09:20 Temperature Pulse Rate Respiratory Rate Blood Pressure 139/79 139/79 139/79 O2 Sat by Pulse 81 L 84 72 L Oximetry 05/25/21 05/25/21 05/25/21 09:30 09:40 09:50 Temperature Pulse Rate Respiratory Rate Blood Pressure 139/79 139/79 139/79 O2 Sat by Pulse 85 78 L 84 Oximetry 05/25/21 05/25/21 05/25/21 10:01 10:12 10:20 Temperature Pulse Rate Respiratory Rate Blood Pressure 139/79 139/79 139/79 O2 Sat by Pulse 79 L 87 Oximetry 05/25/21 05/25/21 05/25/21 10:31 10:40 11:13 Temperature Pulse Rate Respiratory Rate Blood Pressure 139/79 139/79 139/79 O2 Sat by Pulse 84 80 L 84 Oximetry 05/25/21 05/25/21 05/25/21 11:22 11:30 11:41 Temperature 98.2 F Pulse Rate 79 Respiratory 20 Rate Blood Pressure 112/72 139/79 139/79 O2 Sat by Pulse 92 82 L 80 L Oximetry 05/25/21 05/25/21 05/25/21 11:53 12:01 12:10 Temperature Pulse Rate Respiratory Rate Blood Pressure 139/79 139/79 139/79 O2 Sat by Pulse 85 83 L 81 L Oximetry 05/25/21 05/25/21 12:20 12:29 Temperature Pulse Rate Respiratory 20 Rate Blood Pressure 139/79 O2 Sat by Pulse 83 L 95 Oximetry General appearance: Present: no acute distress, well-nourished - EENT Eyes: PERRL, EOM intact ENT: hearing intact, clear oral mucosa Ears: bilateral: normal - Neck Neck: supple, normal ROM - Respiratory Respiratory effort: normal Respiratory: bilateral: diminished - Breasts Breasts: normal - Cardiovascular Rhythm: regular Heart Sounds: Present: S1 & S2. Absent: gallop, rub Extremities: pulses intact, No edema, normal color, Full ROM - Gastrointestinal General gastrointestinal: Present: soft, non-tender, non-distended, normal bowel sounds - Genitourinary Female genitourinary: normal - Integumentary Integumentary: clear, warm, dry - Musculoskeletal Musculoskeletal: 1, strength equal bilaterally - Neurologic Neurologic: moves all extremities - Psychiatric Psychiatric: memory intact, appropriate mood/affect, intact judgment & insight - Labs CBC & Chem 7: 05/22/21 05:36 05/25/21 14:02 Labs: Abnormal lab results 05/24/21 Range/Units 15:37 Sodium 133 L (137-145) mmol/L Carbon Dioxide 20 L (22-30) mmol/L Glucose 133 H (65-100) mg/dL Calcium 8.3 L (8.4-10.2) mg/dL Albumin 3.0 L (3.9-5) g/dL
[2021-05-25 14:59] LABS: Alanine Aminotransferase 23 units/L (7-56); Albumin 3.2 g/dL (3.9-5); Blood Urea Nitrogen 9 mg/dL (7-17); Calcium 9.2 mg/dL (8.4-10.2); Hemolysis Index 183
[2021-05-25 15:06] LABS: BUN/Creatinine Ratio 18
[2021-05-25] MEDS: REMDESIVIR 100 MG in SODIUM CHLORIDE 0.9% 250ML 250 ML IV SCH (22:36)
[2021-05-25] MEDS: ENOXAPARIN 40 MG/0.4 ML INJ SUB-Q SCH (22:37)
[2021-05-25] MEDS: SODIUM CHLORIDE 0.9% 50 ML IVPB IV SCH (22:38)
[2021-05-26] MEDS: IBUPROFEN 600 MG TAB PO PRN ×2 (00:31→10:07)
--- NOTE | 2021-05-26 07:36 | Progress Note ---
Assessment and Plan - Patient Problems (1) Acute respiratory failure with hypoxia Current Visit: Yes Status: Acute Plan to address problem: Patient continues to have hypoxic respiratory failure secondary to Covid pneumonia. Unable to wean down from 15 L at this point. I am sure morbid obesity makes weaning her oxygen problematic. No wheezing just very fatigued and hypoxic. (2) Coronavirus infection Current Visit: Yes Status: Acute Plan to address problem: Patient Covid positive (3) DVT prophylaxis Current Visit: Yes Status: Acute (4) Dehydration Current Visit: Yes Status: Resolved Plan to address problem: Resolved with IV volume replacement. No diarrhea no nausea vomiting. (5) Obesity hypoventilation syndrome Current Visit: Yes Status: Acute Plan to address problem: May be etiology for patient not improving quickly. Will need outpatient sleep study. Also adequate weight loss and nutritional evaluation. Subjective Date of service: 05/26/21 Principal diagnosis: COVID-19 pneumonia Interval history: Patient resting comfortably remains hypoxic requiring 15 L of O2. Otherwise hospital course unremarkable. Patient resting comfortably.. 05/26/2021. Patient failed attempted wean from 15 L to 10 L. Now back up to 15 L. Patient with hypoxemia even sitting up to the side of the bed she becomes hypoxic. Not ready for discharge at this point. Objective - Constitutional Vitals: Vital Signs - 12hr 05/25/21 05/26/21 05/26/21 23:21 00:00 06:26 Temperature 98.5 F Pulse Rate 81 62 Respiratory 20 18 20 Rate Blood Pressure 115/74 114/69 O2 Sat by Pulse 90 95 93 Oximetry 05/26/21 06:33 Temperature 97.5 F L Pulse Rate Respiratory Rate Blood Pressure O2 Sat by Pulse Oximetry General appearance: Present: no acute distress, well-nourished - EENT Eyes: PERRL, EOM intact ENT: hearing intact, clear oral mucosa Ears: bilateral: normal - Neck Neck: supple, normal ROM - Respiratory Respiratory effort: normal Respiratory: bilateral: diminished - Breasts Breasts: normal - Cardiovascular Rhythm: regular Heart Sounds: Present: S1 & S2. Absent: gallop, rub Extremities: pulses intact, No edema, normal color, Full ROM - Gastrointestinal General gastrointestinal: Present: soft, non-tender, non-distended, normal bowel sounds - Genitourinary Female genitourinary: normal - Integumentary Integumentary: clear, warm, dry - Musculoskeletal Musculoskeletal: 1, strength equal bilaterally - Neurologic Neurologic: moves all extremities - Psychiatric Psychiatric: memory intact, appropriate mood/affect, intact judgment & insight - Labs CBC & Chem 7: 05/22/21 05:36 05/26/21 07:11 Labs: Abnormal lab results 05/25/21 Range/Units 14:02 Creatinine 0.5 L (0.6-1.2) mg/dL Glucose 116 H (65-100) mg/dL Albumin 3.2 L (3.9-5) g/dL
[2021-05-26 08:40] LABS: Alanine Aminotransferase 20 units/L (7-56); Albumin 3.9 g/dL (3.9-5); Blood Urea Nitrogen 12 mg/dL (7-17); Calcium 9.4 mg/dL (8.4-10.2); Hemolysis Index 6
[2021-05-26 08:51] LABS: BUN/Creatinine Ratio 24
[2021-05-26] MEDS: CHOLECALCIFEROL (VIT D3) 5,000 UNIT TAB PO SCH (10:07)
[2021-05-26] MEDS: ASCORBIC ACID 500 MG TAB PO SCH (10:08)
[2021-05-26] MEDS: ZINC SULFATE 220 MG CAP PO SCH (10:08)
[2021-05-26] MEDS: dexAMETHasone 4 MG/ML VIAL IV SCH (10:08)
[2021-05-26] MEDS: FAMOTIDINE 20 MG/2 ML INJ IV SCH ×2 (10:09→22:26)
[2021-05-26] MEDS: HYDROmorphone 1 MG/1 ML INJ IV PRN ×2 (14:17→22:25)
--- NOTE | 2021-05-26 16:35 | Progress Note ---
Assessment and Plan Cultures: SARS CoV2 PCR: positive 05/21/2021 blood culture: no growth A/P: 25-year-old female, unvaccinated for COVID-19 with: #Bilateral pneumonia secondary to COVID-19 #Acute hypoxic respiratory failure: On Venturi mask #Mild leukopenia: Possibly viral illness related. #Morbid obesity Recs: IV/PO Dexamethasone 8 mg daily x 10 days, higher dose due to morbid obesity IV remdesivir added. Complete 5 days. prophylactic anticoagulation based on d-dimer per hospital protocol trend ferritin, LDH, d-dimer, CRP every 2-3 days for risk stratification and to assess disease progression 6MWT prior to discharge. If improved okay to discharge prior to completing remdesivir course Steve Nelson MD [facility] ([facility]) O: [phone] F: [phone] Subjective Date of service: 05/26/21 Principal diagnosis: COVID-19 pneumonia Interval history: Afebrile, no acute change. On Venturi mask. Objective - Exam Narrative Exam: Physical exam deferred to reduce risk of transmission of COVID-19. Please refer to primary team's note. - Constitutional Vitals: Vital Signs Temp Pulse Resp BP Pulse Ox 98.1 F 79 20 123/85 92 05/26/21 10:45 05/26/21 10:45 05/26/21 14:17 05/26/21 10:45 05/26/21 10:45 Temperature -Last 24 Hours Temperature 98.1 F Temperature 97.5 F Temperature 98.5 F - Labs CBC & Chem 7: 05/22/21 05:36 05/26/21 07:11 Labs: Abnormal lab results 05/26/21 Range/Units 07:11 Creatinine 0.5 L (0.6-1.2) mg/dL
[2021-05-26] MEDS: guaiFENesin DM 200/20 MG ORAL LIQD 10 ML PO PRN (22:26)
[2021-05-26] MEDS: REMDESIVIR 100 MG in SODIUM CHLORIDE 0.9% 250ML 250 ML IV SCH (22:27)
[2021-05-26] MEDS: SODIUM CHLORIDE 0.9% 50 ML IVPB IV SCH (22:27)
[2021-05-26] MEDS: ENOXAPARIN 40 MG/0.4 ML INJ SUB-Q SCH (22:27)
--- NOTE | 2021-05-27 09:12 | Progress Note ---
Assessment and Plan Assessment and plan: (1) Acute respiratory failure with hypoxia Current Visit: Yes Status: Acute Plan to address problem: Patient continues to have hypoxic respiratory failure secondary to Covid pneumonia. Unable to wean down from 15 L at this point. I am sure morbid obesity makes weaning her oxygen problematic. No wheezing just very fatigued and hypoxic. (2) Coronavirus infection Current Visit: Yes Status: Acute Plan to address problem: Patient Covid positive (3) DVT prophylaxis Current Visit: Yes Status: Acute (4) Dehydration Current Visit: Yes Status: Resolved Plan to address problem: Resolved with IV volume replacement. No diarrhea no nausea vomiting. . (5) Obesity hypoventilation syndrome Current Visit: Yes Status: Acute Plan to address problem: May be etiology for patient not improving quickly. Will need outpatient sleep study. Also adequate weight loss and nutritional evaluation. Patient resting comfortably remains hypoxic requiring 15 L of O2. Otherwise hospital course unremarkable. Patient resting comfortably.. 05/26/2021. Patient failed attempted wean from 15 L to 10 L. Now back up to 15 L. Patient with hypoxemia even sitting up to the side of the bed she becomes hypoxic. Not ready for discharge at this point. 05/27/2021. Patient still requiring 15 L of oxygen. Patient still with hypoxemia with activity. Continue supportive care. Follow-up inflammatory markers. Continue per ID recommendations History Interval history: 25 YO Female with Obesity Hypoventilation Syndrome, SMO, Pneumonia, COVID 19, acute hypoxemic respiratory failure, volume depletion. Patient convalesced well overnight. Patient knowledges persistent shortness of breath. Patient denies pain. No reported nursing events. No new issues overnight. Hospitalist Physical - Constitutional Vitals: Temp Pulse Resp BP Pulse Ox 97.8 F 71 24 119/78 93 05/27/21 05:55 05/27/21 05:52 05/26/21 18:10 05/27/21 05:52 05/27/21 05:55 General appearance: Present: no acute distress, well-nourished - EENT Eyes: Present: PERRL, EOM intact ENT: hearing intact, clear oral mucosa, dentition normal - Neck Neck: Present: supple, normal ROM - Respiratory Respiratory effort: normal Respiratory: bilateral: CTA - Cardiovascular Rhythm: regular Heart Sounds: Present: S1 & S2. Absent: gallop, rub - Extremities Extremities: no ischemia, No edema, Full ROM - Abdominal General gastrointestinal: soft, non-tender, non-distended, normal bowel sounds - Integumentary Integumentary: Present: clear, warm, dry - Neurologic Neurologic: CNII-XII intact, moves all extremities Results - Labs CBC & Chem 7: 05/22/21 05:36 05/26/21 07:11 Labs: Laboratory Last Values WBC 3.9 K/mm3 (4.5-11.0) L 05/22/21 05:36 RBC 4.27 M/mm3 (3.65-5.03) 05/22/21 05:36 Hgb 12.4 gm/dl (10.1-14.3) 05/22/21 05:36 Hct 37.2 % (30.3-42.9) 05/22/21 05:36 MCV 87 fl (79-97) 05/22/21 05:36 MCH 29 pg (28-32) 05/22/21 05:36 MCHC 33 % (30-34) 05/22/21 05:36 RDW 15.3 % (13.2-15.2) H 05/22/21 05:36 Plt Count 231 K/mm3 (140-440) 05/22/21 05:36 Lymph % (Auto) 28.4 % (13.4-35.0) 05/22/21 05:36 [place] % (Auto) 3.8 % (0.0-7.3) 05/22/21 05:36 Eos % (Auto) 0.0 % (0.0-4.3) 05/22/21 05:36 Baso % (Auto) 0.2 % (0.0-1.8) 05/22/21 05:36 Lymph # (Auto) 1.1 K/mm3 (1.2-5.4) L 05/22/21 05:36 [place] # (Auto) 0.1 K/mm3 (0.0-0.8) 05/22/21 05:36 Eos # (Auto) 0.0 K/mm3 (0.0-0.4) 05/22/21 05:36 Baso # (Auto) 0.0 K/mm3 (0.0-0.1) 05/22/21 05:36 Seg Neutrophils % 67.6 % (40.0-70.0) 05/22/21 05:36 Seg Neutrophils # 2.6 K/mm3 (1.8-7.7) 05/22/21 05:36 D-Dimer 275.23 ng/mlDDU (0-234) H 05/22/21 05:36 Sodium 142 mmol/L (137-145) 05/26/21 07:11 Potassium 4.2 mmol/L (3.6-5.0) 05/26/21 07:11 Chloride 103.1 mmol/L (98-107) 05/26/21 07:11 Carbon Dioxide 29 mmol/L (22-30) 05/26/21 07:11 Anion Gap 14 mmol/L 05/26/21 07:11 BUN 12 mg/dL (7-17) 05/26/21 07:11 Creatinine 0.5 mg/dL (0.6-1.2) L 05/26/21 07:11 Estimated GFR > 60 ml/min 05/26/21 07:11 BUN/Creatinine Ratio 24 % 05/26/21 07:11 Glucose 86 mg/dL (65-100) 05/26/21 07:11 Hemoglobin A1c 5.8 % (4-6) 05/22/21 05:36 Calcium 9.4 mg/dL (8.4-10.2) 05/26/21 07:11 Ferritin 236.9 ng/mL (10.0-200.0) H 05/22/21 05:36 Total Bilirubin 0.30 mg/dL (0.1-1.2) 05/26/21 07:11 AST 21 units/L (5-40) 05/26/21 07:11 ALT 20 units/L (7-56) 05/26/21 07:11 Alkaline Phosphatase 55 units/L (35-129) 05/26/21 07:11 Lactate Dehydrogenase 227 units/L (91-180) H 05/22/21 05:36 C-Reactive Protein 0.70 mg/dL (0.00-1.30) 05/22/21 05:36 Total Protein 7.7 g/dL (6.3-8.2) 05/26/21 07:11 Albumin 3.9 g/dL (3.9-5) 05/26/21 07:11 Albumin/Globulin Ratio 1.0 % 05/26/21 07:11 Procalcitonin < 0.05 ng/mL (<0.15) 05/22/21 05:36 HCG, Quant < 2 mIU/mL (0-4) 05/21/21 16:56 Coronavirus (PCR) Positive (Negative) A 05/22/21 08:40 Microbiology: Microbiology 05/21/21 16:56 Peripheral/Venous Blood Culture - Final NO GROWTH AFTER 5 DAYS 05/21/21 16:56 Peripheral/Venous Blood Culture - Final NO GROWTH AFTER 5 DAYS Olsen/IV: Voiding Method Toilet Active Medications - Current Medications Current Medications: Generic Name Dose Route Start Last Admin Trade Name Freq PRN Reason Stop Dose Admin Acetaminophen 650 mg 05/21/21 20:35 Acetaminophen 325 Mg Tab PO Q4H PRN Pain MILD(1-3)/Fever >100.5/HERRERA Al Hydrox/Mg Hydrox/Simethicone 30 ml 05/21/21 20:35 Alum-Mag Hydroxide-Simethicone [id number]/5ml Oral Liqd 30 Ml PO Q4H PRN Indigestion Albuterol 2.5 mg 05/23/21 13:30 05/23/21 13:44 Albuterol 2.5 Mg/3 Ml Nebu IH 2.5 mg Q4HRT PRN Administration Shortness Of Breath Ascorbic Acid 500 mg 05/22/21 10:00 05/26/21 10:08 Ascorbic Acid 500 Mg Tab PO 500 mg QDAY FRANKY Administration Cholecalciferol 5,000 unit 05/22/21 10:00 05/26/21 10:07 Cholecalciferol (Vit D3) 5,000 Unit Tab PO 5,000 unit DAILY FRANKY Administration Dexamethasone 8 mg 05/23/21 14:37 05/26/21 10:08 Dexamethasone 4 Mg/Ml Vial IV 05/31/21 10:01 8 mg DAILY FRANKY Administration Enoxaparin Sodium 40 mg 05/21/21 22:00 05/26/21 22:27 Enoxaparin 40 Mg/0.4 Ml Inj SUB-Q 40 mg QDAY@2200 FRANKY Administration Famotidine 20 mg 05/21/21 22:00 05/26/21 22:26 Famotidine 20 Mg/2 Ml Inj IV 20 mg BID FRANKY Administration Guaifenesin 20 ml 05/21/21 22:34 05/26/21 22:26 Guaifenesin Dm 200/20 Mg Oral Liqd 10 Ml PO 20 ml Q4H PRN Administration Cough Hydromorphone HCl 0.5 mg 05/22/21 01:29 05/26/21 22:25 Hydromorphone 1 Mg/1 Ml Inj IV 0.5 mg Q3H PRN Administration Pain , Severe (7-10) Sodium Chloride 1,000 mls @ 42 mls/hr 05/21/21 20:45 Nacl 0.9% 1000 Ml IV DIRECT FRANKY REMDESIVIR 100 mg/ Sodium 250 mls @ 500 mls/hr 05/24/21 21:00 05/26/21 22:27 Chloride IV 05/27/21 21:29 500 mls/hr Q24HR@2100 FRANKY Administration Ibuprofen 600 mg 05/21/21 20:35 05/26/21 10:07 Ibuprofen 600 Mg Tab PO 600 mg Q6H PRN Administration Pain, Mild (1-3) Magnesium Hydroxide 30 ml 05/21/21 20:35 Magnesium Hydroxide (Mom) Oral Liqd Udc PO Q4H PRN Constipation Metoclopramide HCl 10 mg 05/21/21 20:35 Metoclopramide 10 Mg/2 Ml Inj IV Q6H PRN Nausea And Vomiting Naloxone HCl 0.1 mg 05/21/21 20:35 Naloxone 0.4 Mg/1 Ml Inj IV Q2MIN PRN Res Rate </= 8 or 02 SAT < 92% Ondansetron HCl 4 mg 05/21/21 20:35 05/23/21 10:08 Ondansetron 4 Mg/2 Ml Inj IV 4 mg Q8H PRN Administration Nausea And Vomiting Senna 8.6 mg 05/21/21 20:35 Sennosides 8.6 Mg Tab PO Q12HR PRN Constipation Sodium Chloride 10 ml 05/21/21 22:00 05/26/21 22:38 Sodium Chloride 0.9% 10 Ml Flush Syringe IV 10 ml BID FRANKY Administration Zinc Sulfate 220 mg 05/22/21 10:00 05/26/21 10:08 Zinc Sulfate 220 Mg Cap PO 220 mg QDAY FRANKY Administration Nutrition/Malnutrition Assess - Dietary Evaluation Nutrition/Malnutrition Findings: Nutrition Notes Start: 05/27/21 08:56 Freq: Status: Active Protocol: Document 05/27/21 08:57 KARLA (Rec: 05/27/21 08:57 KARLA [id number]) Nutrition Notes Need for Assessment generated from: LOS Initial or Follow up Brief Note Subjective/Other Information Screen for LOS. Pt eating 75%- 100% of meals. Nutrition Intervention Revisit per MD consult or patient Sign Off request:
[2021-05-27] MEDS: dexAMETHasone 4 MG/ML VIAL IV SCH (09:39)
[2021-05-27] MEDS: ASCORBIC ACID 500 MG TAB PO SCH (09:39)
[2021-05-27] MEDS: CHOLECALCIFEROL (VIT D3) 5,000 UNIT TAB PO SCH (09:40)
[2021-05-27] MEDS: ZINC SULFATE 220 MG CAP PO SCH (09:40)
[2021-05-27] MEDS: FAMOTIDINE 20 MG/2 ML INJ IV SCH (09:40)
--- NOTE | 2021-05-27 10:52 | Progress Note ---
Assessment and Plan Cultures: SARS CoV2 PCR: positive 05/21/2021 blood culture: no growth A/P: 25-year-old female, unvaccinated for COVID-19 with: #Bilateral pneumonia secondary to COVID-19 #Acute hypoxic respiratory failure: On Venturi mask #Mild leukopenia: Possibly viral illness related. #Morbid obesity Recs: IV/PO Dexamethasone 8 mg daily x 10 days, higher dose due to morbid obesity IV remdesivir added. Complete 5 days. prophylactic anticoagulation based on d-dimer per hospital protocol trend ferritin, LDH, d-dimer, CRP every 2-3 days for risk stratification and to assess disease progression Ordered CRP for AM in case she progresses to HFNC and needs Actemra G. Kim Nelson MD [facility] ([facility]) O: [phone] F: [phone] Subjective Date of service: 05/27/21 Principal diagnosis: COVID-19 pneumonia Interval history: Afebrile, no acute change. Objective - Exam Narrative Exam: Physical exam deferred to reduce risk of transmission of COVID-19. Please refer to primary team's note. - Constitutional Vitals: Vital Signs Temp Pulse Resp BP Pulse Ox 97.8 F 71 24 119/78 93 05/27/21 05:55 05/27/21 05:52 05/26/21 18:10 05/27/21 05:52 05/27/21 05:55 Temperature -Last 24 Hours Temperature 97.8 F Temperature 97.3 F - Labs CBC & Chem 7: 05/22/21 05:36 05/26/21 07:11
[2021-05-27] MEDS: HYDROmorphone 1 MG/1 ML INJ IV PRN ×2 (12:19→18:32)
[2021-05-27] MEDS: ENOXAPARIN 40 MG/0.4 ML INJ SUB-Q SCH (23:36)
[2021-05-27] MEDS: REMDESIVIR 100 MG in SODIUM CHLORIDE 0.9% 250ML 250 ML IV SCH (23:36)
[2021-05-27] MEDS: FAMOTIDINE 20 MG TAB PO SCH (23:36)
--- NOTE | 2021-05-28 09:54 | Progress Note ---
Assessment and Plan Assessment and plan: (1) Acute respiratory failure with hypoxia Current Visit: Yes Status: Acute Plan to address problem: Patient continues to have hypoxic respiratory failure secondary to Covid pneumonia. Unable to wean down from 15 L at this point. I am sure morbid obesity makes weaning her oxygen problematic. No wheezing just very fatigued and hypoxic. (2) Coronavirus infection Current Visit: Yes Status: Acute Plan to address problem: Patient Covid positive (3) DVT prophylaxis Current Visit: Yes Status: Acute (4) Dehydration Current Visit: Yes Status: Resolved Plan to address problem: Resolved with IV volume replacement. No diarrhea no nausea vomiting. . (5) Obesity hypoventilation syndrome Current Visit: Yes Status: Acute Plan to address problem: May be etiology for patient not improving quickly. Will need outpatient sleep study. Also adequate weight loss and nutritional evaluation. Patient resting comfortably remains hypoxic requiring 15 L of O2. Otherwise hospital course unremarkable. Patient resting comfortably.. 05/26/2021. Patient failed attempted wean from 15 L to 10 L. Now back up to 15 L. Patient with hypoxemia even sitting up to the side of the bed she becomes hypoxic. Not ready for discharge at this point. 05/27/2021. Patient still requiring 15 L of oxygen. Patient still with hypoxemia with activity. Continue supportive care. Follow-up inflammatory markers. Continue per ID recommendations 05/28/2021. Patient still requiring increased amounts of oxygen with Venturi mask at 15 L FiO2 of 50%. Continue to follow inflammatory markers and supportive care. Continue prophylactic anticoagulation. Patient may need Actemra per ID. History Interval history: 25 YO Female with Obesity Hypoventilation Syndrome, SMO, Pneumonia, COVID 19, acute hypoxemic respiratory failure, volume depletion. Patient convalesced well overnight. Patient knowledges persistent shortness of breath. Patient denies pain. No reported nursing events. No new issues overnight. Hospitalist Physical - Constitutional Vitals: Temp Pulse Resp BP Pulse Ox 98.2 F 70 18 108/71 96 05/28/21 05:17 05/28/21 05:17 05/28/21 05:17 05/28/21 05:17 05/28/21 05:17 General appearance: Present: no acute distress, well-nourished - EENT Eyes: Present: PERRL, EOM intact ENT: hearing intact, clear oral mucosa, dentition normal - Neck Neck: Present: supple, normal ROM - Respiratory Respiratory effort: normal Respiratory: bilateral: CTA - Cardiovascular Rhythm: regular Heart Sounds: Present: S1 & S2. Absent: gallop, rub - Extremities Extremities: no ischemia, No edema, Full ROM - Abdominal General gastrointestinal: soft, non-tender, non-distended, normal bowel sounds - Integumentary Integumentary: Present: clear, warm, dry - Neurologic Neurologic: CNII-XII intact, moves all extremities Results - Labs CBC & Chem 7: 05/22/21 05:36 05/26/21 07:11 Labs: Laboratory Last Values WBC 3.9 K/mm3 (4.5-11.0) L 05/22/21 05:36 RBC 4.27 M/mm3 (3.65-5.03) 05/22/21 05:36 Hgb 12.4 gm/dl (10.1-14.3) 05/22/21 05:36 Hct 37.2 % (30.3-42.9) 05/22/21 05:36 MCV 87 fl (79-97) 05/22/21 05:36 MCH 29 pg (28-32) 05/22/21 05:36 MCHC 33 % (30-34) 05/22/21 05:36 RDW 15.3 % (13.2-15.2) H 05/22/21 05:36 Plt Count 231 K/mm3 (140-440) 05/22/21 05:36 Lymph % (Auto) 28.4 % (13.4-35.0) 05/22/21 05:36 [place] % (Auto) 3.8 % (0.0-7.3) 05/22/21 05:36 Eos % (Auto) 0.0 % (0.0-4.3) 05/22/21 05:36 Baso % (Auto) 0.2 % (0.0-1.8) 05/22/21 05:36 Lymph # (Auto) 1.1 K/mm3 (1.2-5.4) L 05/22/21 05:36 [place] # (Auto) 0.1 K/mm3 (0.0-0.8) 05/22/21 05:36 Eos # (Auto) 0.0 K/mm3 (0.0-0.4) 05/22/21 05:36 Baso # (Auto) 0.0 K/mm3 (0.0-0.1) 05/22/21 05:36 Seg Neutrophils % 67.6 % (40.0-70.0) 05/22/21 05:36 Seg Neutrophils # 2.6 K/mm3 (1.8-7.7) 05/22/21 05:36 D-Dimer 275.23 ng/mlDDU (0-234) H 05/22/21 05:36 Sodium 142 mmol/L (137-145) 05/26/21 07:11 Potassium 4.2 mmol/L (3.6-5.0) 05/26/21 07:11 Chloride 103.1 mmol/L (98-107) 05/26/21 07:11 Carbon Dioxide 29 mmol/L (22-30) 05/26/21 07:11 Anion Gap 14 mmol/L 05/26/21 07:11 BUN 12 mg/dL (7-17) 05/26/21 07:11 Creatinine 0.5 mg/dL (0.6-1.2) L 05/26/21 07:11 Estimated GFR > 60 ml/min 05/26/21 07:11 BUN/Creatinine Ratio 24 % 05/26/21 07:11 Glucose 86 mg/dL (65-100) 05/26/21 07:11 Hemoglobin A1c 5.8 % (4-6) 05/22/21 05:36 Calcium 9.4 mg/dL (8.4-10.2) 05/26/21 07:11 Ferritin 236.9 ng/mL (10.0-200.0) H 05/22/21 05:36 Total Bilirubin 0.30 mg/dL (0.1-1.2) 05/26/21 07:11 AST 21 units/L (5-40) 05/26/21 07:11 ALT 20 units/L (7-56) 05/26/21 07:11 Alkaline Phosphatase 55 units/L (35-129) 05/26/21 07:11 Lactate Dehydrogenase 227 units/L (91-180) H 05/22/21 05:36 C-Reactive Protein 0.60 mg/dL (0.00-1.30) 05/28/21 05:43 Total Protein 7.7 g/dL (6.3-8.2) 05/26/21 07:11 Albumin 3.9 g/dL (3.9-5) 05/26/21 07:11 Albumin/Globulin Ratio 1.0 % 05/26/21 07:11 Procalcitonin < 0.05 ng/mL (<0.15) 05/22/21 05:36 HCG, Quant < 2 mIU/mL (0-4) 05/21/21 16:56 Coronavirus (PCR) Positive (Negative) A 05/22/21 08:40 Olsen/IV: Voiding Method Toilet Active Medications - Current Medications Current Medications: Generic Name Dose Route Start Last Admin Trade Name Freq PRN Reason Stop Dose Admin Acetaminophen 650 mg 05/21/21 20:35 Acetaminophen 325 Mg Tab PO Q4H PRN Pain MILD(1-3)/Fever >100.5/HERRERA Al Hydrox/Mg Hydrox/Simethicone 30 ml 05/21/21 20:35 Alum-Mag Hydroxide-Simethicone 922-590-10un/5ml Oral Liqd 30 Ml PO Q4H PRN Indigestion Albuterol 2.5 mg 05/23/21 13:30 05/23/21 13:44 Albuterol 2.5 Mg/3 Ml Nebu IH 2.5 mg Q4HRT PRN Administration Shortness Of Breath Ascorbic Acid 500 mg 05/22/21 10:00 05/27/21 09:39 Ascorbic Acid 500 Mg Tab PO 500 mg QDAY FRANKY Administration Cholecalciferol 5,000 unit 05/22/21 10:00 05/27/21 09:40 Cholecalciferol (Vit D3) 5,000 Unit Tab PO 5,000 unit DAILY FRANKY Administration Dexamethasone 8 mg 05/23/21 14:37 05/27/21 09:39 Dexamethasone 4 Mg/Ml Vial IV 05/31/21 10:01 8 mg DAILY FRANKY Administration Enoxaparin Sodium 40 mg 05/21/21 22:00 05/27/21 23:36 Enoxaparin 40 Mg/0.4 Ml Inj SUB-Q 40 mg QDAY@2200 FRANKY Administration Famotidine 20 mg 05/27/21 22:00 05/27/21 23:36 Famotidine 20 Mg Tab PO 20 mg BID FRANKY Administration Guaifenesin 20 ml 05/21/21 22:34 08/04/21 22:26 Guaifenesin Dm 200/20 Mg Oral Liqd 10 Ml PO 20 ml Q4H PRN Administration Cough Hydromorphone HCl 0.5 mg 05/22/21 01:29 05/27/21 18:32 Hydromorphone 1 Mg/1 Ml Inj IV 0.5 mg Q3H PRN Administration Pain , Severe (7-10) Sodium Chloride 1,000 mls @ 42 mls/hr 05/21/21 20:45 05/27/21 23:36 Nacl 0.9% 1000 Ml IV 42 mls/hr DIRECT FRANKY Administration Ibuprofen 600 mg 05/21/21 20:35 05/26/21 10:07 Ibuprofen 600 Mg Tab PO 600 mg Q6H PRN Administration Pain, Mild (1-3) Magnesium Hydroxide 30 ml 05/21/21 20:35 Magnesium Hydroxide (Mom) Oral Liqd Udc PO Q4H PRN Constipation Metoclopramide HCl 10 mg 05/21/21 20:35 Metoclopramide 10 Mg/2 Ml Inj IV Q6H PRN Nausea And Vomiting Naloxone HCl 0.1 mg 05/21/21 20:35 Naloxone 0.4 Mg/1 Ml Inj IV Q2MIN PRN Res Rate </= 8 or 02 SAT < 92% Ondansetron HCl 4 mg 05/21/21 20:35 05/23/21 10:08 Ondansetron 4 Mg/2 Ml Inj IV 4 mg Q8H PRN Administration Nausea And Vomiting Senna 8.6 mg 05/21/21 20:35 Sennosides 8.6 Mg Tab PO Q12HR PRN Constipation Sodium Chloride 10 ml 05/21/21 22:00 05/27/21 23:37 Sodium Chloride 0.9% 10 Ml Flush Syringe IV 10 ml BID FRANKY Administration Zinc Sulfate 220 mg 05/22/21 10:00 05/27/21 09:40 Zinc Sulfate 220 Mg Cap PO 220 mg QDAY FRANKY Administration Nutrition/Malnutrition Assess - Dietary Evaluation Nutrition/Malnutrition Findings: Nutrition Notes Start: 05/27/21 08:56 Freq: Status: Active Protocol: Document 05/27/21 08:57 (Rec: 05/27/21 08:57 MK [id number]) Nutrition Notes Need for Assessment generated from: LOS Initial or Follow up Brief Note Subjective/Other Information Screen for LOS. Pt eating 75%- 100% of meals. Nutrition Intervention Revisit per MD consult or patient Sign Off request:
[2021-05-28] MEDS: ASCORBIC ACID 500 MG TAB PO SCH (10:40)
[2021-05-28] MEDS: ZINC SULFATE 220 MG CAP PO SCH (10:40)
[2021-05-28] MEDS: dexAMETHasone 4 MG/ML VIAL IV SCH (10:40)
[2021-05-28] MEDS: FAMOTIDINE 20 MG TAB PO SCH ×2 (10:40→21:16)
[2021-05-28] MEDS: CHOLECALCIFEROL (VIT D3) 5,000 UNIT TAB PO SCH (10:40)
[2021-05-28] MEDS: HYDROmorphone 1 MG/1 ML INJ IV PRN ×2 (13:53→22:08)
--- NOTE | 2021-05-28 15:05 | Progress Note ---
Assessment and Plan Cultures: SARS CoV2 PCR: positive 05/21/2021 blood culture: no growth A/P: 25-year-old female, unvaccinated for COVID-19 with: #Bilateral pneumonia secondary to COVID-19 #Acute hypoxic respiratory failure: On Venturi mask #Mild leukopenia: Possibly viral illness related. #Morbid obesity Recs: IV/PO Dexamethasone 8 mg daily x 10 days, higher dose due to morbid obesity Completed Remdesivir prophylactic anticoagulation based on d-dimer per hospital protocol trend ferritin, LDH, d-dimer, CRP every 2-3 days for risk stratification and to assess disease progression CRP normal ID will sign off. Please call with questions. Steve Nelson MD [facility] ([facility] O: [phone] F: [phone] Subjective Date of service: 05/28/21 Principal diagnosis: COVID-19 pneumonia Interval history: Afebrile, no acute change. Currently on Venturi mask. Objective - Exam Narrative Exam: Physical exam deferred to reduce risk of transmission of COVID-19. Please refer to primary team's note. - Constitutional Vitals: Vital Signs Temp Pulse Resp BP Pulse Ox 97.5 F L 76 18 123/69 91 05/28/21 11:50 05/28/21 11:50 05/28/21 11:50 05/28/21 11:50 05/28/21 11:50 Temperature -Last 24 Hours Temperature 97.5 F Temperature 98.2 F Temperature 97.9 F - Labs CBC & Chem 7: 05/22/21 05:36 05/26/21 07:11
[2021-05-28] MEDS: ENOXAPARIN 40 MG/0.4 ML INJ SUB-Q SCH (21:16)
--- NOTE | 2021-05-29 07:59 | Progress Note ---
Assessment and Plan Assessment and plan: (1) Acute respiratory failure with hypoxia Current Visit: Yes Status: Acute Plan to address problem: Patient continues to have hypoxic respiratory failure secondary to Covid pneumonia. Unable to wean down from 15 L at this point. I am sure morbid obesity makes weaning her oxygen problematic. No wheezing just very fatigued and hypoxic. (2) Coronavirus infection Current Visit: Yes Status: Acute Plan to address problem: Patient Covid positive (3) DVT prophylaxis Current Visit: Yes Status: Acute (4) Dehydration Current Visit: Yes Status: Resolved Plan to address problem: Resolved with IV volume replacement. No diarrhea no nausea vomiting. . (5) Obesity hypoventilation syndrome Current Visit: Yes Status: Acute Plan to address problem: May be etiology for patient not improving quickly. Will need outpatient sleep study. Also adequate weight loss and nutritional evaluation. Patient resting comfortably remains hypoxic requiring 15 L of O2. Otherwise hospital course unremarkable. Patient resting comfortably.. 05/26/2021. Patient failed attempted wean from 15 L to 10 L. Now back up to 15 L. Patient with hypoxemia even sitting up to the side of the bed she becomes hypoxic. Not ready for discharge at this point. 05/27/2021. Patient still requiring 15 L of oxygen. Patient still with hypoxemia with activity. Continue supportive care. Follow-up inflammatory markers. Continue per ID recommendations 05/28/2021. Patient still requiring increased amounts of oxygen with Venturi mask at 15 L FiO2 of 50%. Continue to follow inflammatory markers and supportive care. Continue prophylactic anticoagulation. Patient may need Actemra per ID. 05/29/2021. Patient has been weaned to 3 L nasal cannula satting at 93%. Completed remdesivir and continue dexamethasone. Continue to follow anti- inflammatory markers. Exercise pulse oximetry to evaluate for home oxygen. History Interval history: 25 YO Female with Obesity Hypoventilation Syndrome, SMO, Pneumonia, COVID 19, acute hypoxemic respiratory failure, volume depletion. Patient convalesced well overnight. Patient knowledges persistent shortness of breath. Patient denies pain. No reported nursing events. No new issues overnight. Hospitalist Physical - Constitutional Vitals: Temp Pulse Resp BP Pulse Ox 98.0 F 59 L 18 118/68 95 05/29/21 05:43 05/29/21 05:43 05/29/21 05:43 05/29/21 05:43 05/29/21 05:43 General appearance: Present: no acute distress, well-nourished - EENT Eyes: Present: PERRL, EOM intact ENT: hearing intact, clear oral mucosa, dentition normal - Neck Neck: Present: supple, normal ROM - Respiratory Respiratory effort: normal Respiratory: bilateral: CTA - Cardiovascular Rhythm: regular Heart Sounds: Present: S1 & S2. Absent: gallop, rub - Extremities Extremities: no ischemia, No edema, Full ROM - Abdominal General gastrointestinal: soft, non-tender, non-distended, normal bowel sounds - Integumentary Integumentary: Present: clear, warm, dry - Neurologic Neurologic: CNII-XII intact, moves all extremities Results - Labs CBC & Chem 7: 05/22/21 05:36 05/26/21 07:11 Labs: Laboratory Last Values WBC 3.9 K/mm3 (4.5-11.0) L 05/22/21 05:36 RBC 4.27 M/mm3 (3.65-5.03) 05/22/21 05:36 Hgb 12.4 gm/dl (10.1-14.3) 05/22/21 05:36 Hct 37.2 % (30.3-42.9) 05/22/21 05:36 MCV 87 fl (79-97) 05/22/21 05:36 MCH 29 pg (28-32) 05/22/21 05:36 MCHC 33 % (30-34) 05/22/21 05:36 RDW 15.3 % (13.2-15.2) H 05/22/21 05:36 Plt Count 231 K/mm3 (140-440) 05/22/21 05:36 Lymph % (Auto) 28.4 % (13.4-35.0) 05/22/21 05:36 [place] % (Auto) 3.8 % (0.0-7.3) 05/22/21 05:36 Eos % (Auto) 0.0 % (0.0-4.3) 05/22/21 05:36 Baso % (Auto) 0.2 % (0.0-1.8) 05/22/21 05:36 Lymph # (Auto) 1.1 K/mm3 (1.2-5.4) L 05/22/21 05:36 [place] # (Auto) 0.1 K/mm3 (0.0-0.8) 05/22/21 05:36 Eos # (Auto) 0.0 K/mm3 (0.0-0.4) 05/22/21 05:36 Baso # (Auto) 0.0 K/mm3 (0.0-0.1) 05/22/21 05:36 Seg Neutrophils % 67.6 % (40.0-70.0) 05/22/21 05:36 Seg Neutrophils # 2.6 K/mm3 (1.8-7.7) 05/22/21 05:36 D-Dimer 275.23 ng/mlDDU (0-234) H 05/22/21 05:36 Sodium 142 mmol/L (137-145) 05/26/21 07:11 Potassium 4.2 mmol/L (3.6-5.0) 05/26/21 07:11 Chloride 103.1 mmol/L (98-107) 05/26/21 07:11 Carbon Dioxide 29 mmol/L (22-30) 05/26/21 07:11 Anion Gap 14 mmol/L 05/26/21 07:11 BUN 12 mg/dL (7-17) 05/26/21 07:11 Creatinine 0.5 mg/dL (0.6-1.2) L 05/26/21 07:11 Estimated GFR > 60 ml/min 05/26/21 07:11 BUN/Creatinine Ratio 24 % 05/26/21 07:11 Glucose 86 mg/dL (65-100) 05/26/21 07:11 Hemoglobin A1c 5.8 % (4-6) 05/22/21 05:36 Calcium 9.4 mg/dL (8.4-10.2) 05/26/21 07:11 Ferritin 236.9 ng/mL (10.0-200.0) H 05/22/21 05:36 Total Bilirubin 0.30 mg/dL (0.1-1.2) 05/26/21 07:11 AST 21 units/L (5-40) 05/26/21 07:11 ALT 20 units/L (7-56) 05/26/21 07:11 Alkaline Phosphatase 55 units/L (35-129) 05/26/21 07:11 Lactate Dehydrogenase 227 units/L (91-180) H 05/22/21 05:36 C-Reactive Protein 0.60 mg/dL (0.00-1.30) 05/28/21 05:43 Total Protein 7.7 g/dL (6.3-8.2) 05/26/21 07:11 Albumin 3.9 g/dL (3.9-5) 05/26/21 07:11 Albumin/Globulin Ratio 1.0 % 05/26/21 07:11 Procalcitonin < 0.05 ng/mL (<0.15) 05/22/21 05:36 HCG, Quant < 2 mIU/mL (0-4) 05/21/21 16:56 Coronavirus (PCR) Positive (Negative) A 05/22/21 08:40 Olsen/IV: Voiding Method Toilet Active Medications - Current Medications Current Medications: Generic Name Dose Route Start Last Admin Trade Name Freq PRN Reason Stop Dose Admin Acetaminophen 650 mg 05/21/21 20:35 Acetaminophen 325 Mg Tab PO Q4H PRN Pain MILD(1-3)/Fever >100.5/HERRERA Al Hydrox/Mg Hydrox/Simethicone 30 ml 05/21/21 20:35 Alum-Mag Hydroxide-Simethicone 221-815-04gd/5ml Oral Liqd 30 Ml PO Q4H PRN Indigestion Albuterol 2.5 mg 05/23/21 13:30 05/23/21 13:44 Albuterol 2.5 Mg/3 Ml Nebu IH 2.5 mg Q4HRT PRN Administration Shortness Of Breath Ascorbic Acid 500 mg 05/22/21 10:00 05/28/21 10:40 Ascorbic Acid 500 Mg Tab PO 500 mg QDAY FRANKY Administration Cholecalciferol 5,000 unit 05/22/21 10:00 05/28/21 10:40 Cholecalciferol (Vit D3) 5,000 Unit Tab PO 5,000 unit DAILY FRANKY Administration Dexamethasone 8 mg 05/23/21 14:37 05/28/21 10:40 Dexamethasone 4 Mg/Ml Vial IV 05/31/21 10:01 8 mg DAILY FRANKY Administration Enoxaparin Sodium 40 mg 05/21/21 22:00 05/28/21 21:16 Enoxaparin 40 Mg/0.4 Ml Inj SUB-Q 40 mg QDAY@2200 FRANKY Administration Famotidine 20 mg 05/27/21 22:00 05/28/21 21:16 Famotidine 20 Mg Tab PO 20 mg BID FRANKY Administration Guaifenesin 20 ml 05/21/21 22:34 05/26/21 22:26 Guaifenesin Dm 200/20 Mg Oral Liqd 10 Ml PO 20 ml Q4H PRN Administration Cough Hydromorphone HCl 0.5 mg 05/22/21 01:29 05/28/21 22:08 Hydromorphone 1 Mg/1 Ml Inj IV 0.5 mg Q3H PRN Administration Pain , Severe (7-10) Sodium Chloride 1,000 mls @ 42 mls/hr 05/21/21 20:45 05/27/21 23:36 Nacl 0.9% 1000 Ml IV 42 mls/hr DIRECT FRANKY Administration Ibuprofen 600 mg 05/21/21 20:35 05/26/21 10:07 Ibuprofen 600 Mg Tab PO 600 mg Q6H PRN Administration Pain, Mild (1-3) Magnesium Hydroxide 30 ml 05/21/21 20:35 Magnesium Hydroxide (Mom) Oral Liqd Udc PO Q4H PRN Constipation Metoclopramide HCl 10 mg 05/21/21 20:35 Metoclopramide 10 Mg/2 Ml Inj IV Q6H PRN Nausea And Vomiting Naloxone HCl 0.1 mg 05/21/21 20:35 Naloxone 0.4 Mg/1 Ml Inj IV Q2MIN PRN Res Rate </= 8 or 02 SAT < 92% Ondansetron HCl 4 mg 05/21/21 20:35 05/23/21 10:08 Ondansetron 4 Mg/2 Ml Inj IV 4 mg Q8H PRN Administration Nausea And Vomiting Senna 8.6 mg 05/21/21 20:35 Sennosides 8.6 Mg Tab PO Q12HR PRN Constipation Sodium Chloride 10 ml 05/21/21 22:00 05/28/21 21:16 Sodium Chloride 0.9% 10 Ml Flush Syringe IV 10 ml BID FRANKY Administration Zinc Sulfate 220 mg 05/22/21 10:00 05/28/21 10:40 Zinc Sulfate 220 Mg Cap PO 220 mg QDAY FRANKY Administration Nutrition/Malnutrition Assess - Dietary Evaluation Nutrition/Malnutrition Findings: Nutrition Notes Start: 08/05/21 08:56 Freq: Status: Active Protocol: Document 05/27/21 08:57 (Rec: 05/27/21 08:57 [id number]) Nutrition Notes Need for Assessment generated from: LOS Initial or Follow up Brief Note Subjective/Other Information Screen for LOS. Pt eating 75%- 100% of meals. Nutrition Intervention Revisit per MD consult or patient Sign Off request:
[2021-05-29] MEDS: IBUPROFEN 600 MG TAB PO PRN (12:13)
[2021-05-29] MEDS: FAMOTIDINE 20 MG TAB PO SCH ×2 (12:14→22:00)
[2021-05-29] MEDS: ASCORBIC ACID 500 MG TAB PO SCH (12:14)
[2021-05-29] MEDS: ZINC SULFATE 220 MG CAP PO SCH (12:14)
[2021-05-29] MEDS: CHOLECALCIFEROL (VIT D3) 5,000 UNIT TAB PO SCH (12:14)
[2021-05-29] MEDS: dexAMETHasone 4 MG/ML VIAL IV SCH (12:15)
[2021-05-29] MEDS: ENOXAPARIN 40 MG/0.4 ML INJ SUB-Q SCH (21:59)
[2021-05-29] MEDS: HYDROmorphone 1 MG/1 ML INJ IV PRN (22:00)
--- NOTE | 2021-05-30 08:50 | Discharge Summary ---
Providers - Providers Date of Admission: 05/21/21 18:13 Date of discharge: 05/30/21 Attending physician: GIANA CORONADO 05/22/21 00:14 Consult to Physician [CONS] Routine Comment: Consulting Provider: AMBER VANN Physician Instructions: Reason For Exam: pui Primary care physician: MANAGER [employer] Hospitalization Reason for admission: resp failure Condition: Fair Hospital course: 25-year-old female who presented through the emergency department with complaints of shortness of breath. The patient was admitted with diagnosis of acute hypoxic respiratory failure and bilateral pneumonia. COVID-19 PCR was found to be positive on 05/22/2021. The patient was seen by ID in consultation and was treated with dexamethasone and remdesivir. Hospital course: 05/26/2021. Patient failed attempted wean from 15 L to 10 L. Now back up to 15 L. Patient with hypoxemia even sitting up to the side of the bed she becomes hypoxic. Not ready for discharge at this point. 05/27/2021. Patient still requiring 15 L of oxygen. Patient still with hypoxemia with activity. Continue supportive care. Follow-up inflammatory markers. Continue per ID recommendations 05/28/2021. Patient still requiring increased amounts of oxygen with Venturi mask at 15 L FiO2 of 50%. Continue to follow inflammatory markers and supportive care. Continue prophylactic anticoagulation. Patient may need Actemra per ID. 05/29/2021. Patient has been weaned to 3 L nasal cannula satting at 93%. Completed remdesivir and continue dexamethasone. Continue to follow anti- inflammatory markers. Exercise pulse oximetry to evaluate for home oxygen. 05/30/2021. Exercise pulse oximetry testing revealed room air resting pulse ox. 96% Rm. air resting during exercise 93 % Resting with O2 100 % Patient will be discharged home and is to follow-up with PCP. Dedicated discharge time 35 minutes Disposition: DC-01 TO HOME OR SELFCARE Final Discharge Diagnosis (Prints w/discharge instructions): Acute hypoxic respiratory failure, bilateral pneumonia, COVID-19 pneumonia, morbid obesity Core Measure Documentation - Palliative Care Palliative Care/ Comfort Measures: Not Applicable - Core Measures Any of the following diagnoses?: none Exam - Constitutional Vitals: Temp Pulse Resp BP Pulse Ox 98.2 F 65 20 106/67 98 05/30/21 05:42 05/30/21 05:42 05/30/21 05:42 05/30/21 05:42 05/30/21 08:33 General appearance: Present: no acute distress, well-nourished - EENT Eyes: Present: PERRL ENT: hearing intact, clear oral mucosa - Neck Neck: Present: supple, normal ROM - Respiratory Respiratory effort: normal Respiratory: bilateral: CTA - Cardiovascular Heart Sounds: Present: S1 & S2. Absent: rub, click - Extremities Extremities: pulses symmetrical, No edema Peripheral Pulses: within normal limits - Abdominal General gastrointestinal: Present: soft, non-tender, non-distended, normal bowel sounds Female genitourinary: Present: normal - Integumentary Integumentary: Present: clear, warm, dry - Musculoskeletal Musculoskeletal: gait normal, strength equal bilaterally - Psychiatric Psychiatric: appropriate mood/affect, intact judgment & insight - Neurologic Neurologic: CNII-XII intact, moves all extremities Plan Activity: advance as tolerated Weight Bearing Status: Weight Bear as Tolerated Diet: regular Follow up with: PRIMARY CAREMD [Primary Care Provider] - 7 Days AMBER VANN MD [Staff Physician] - 7 Days Prescriptions: dexAMETHasone [Dexamethasone] 4 mg PO DAILY 3 Days #6 tablet Ascorbic Acid [Vitamin C] 500 mg PO QDAY #30 tablet Cholecalciferol (Vitamin D3) [Vitamin D3] 5,000 unit PO DAILY #30 tablet Zinc Sulfate 220 mg PO QDAY #30 capsule
[2021-05-30] MEDS: CHOLECALCIFEROL (VIT D3) 5,000 UNIT TAB PO SCH (11:59)
[2021-05-30] MEDS: FAMOTIDINE 20 MG TAB PO SCH (11:59)
[2021-05-30] MEDS: ASCORBIC ACID 500 MG TAB PO SCH (11:59)
[2021-05-30] MEDS: dexAMETHasone 4 MG/ML VIAL IV SCH (11:59)
[2021-05-30 13:20] VITALS: BP 112/75
== END 2021-05-30 16:30 | disposition home or self-care (01) | DRG 177 ==
LOC: ED 13:42 → 3A 18:13
PROVIDERS: ADMIT Internal Medicine; ATTEND Hospitalist
PROC: XW033E5 Introduction of Remdesivir Anti-infective into Peripheral Vein, Percutaneous Approach, New Technology Group 5 (ICD-10-PCS; principal; 2021-05-23)
DX: U07.1 COVID-19 (principal); J96.01 Acute respiratory failure with hypoxia; J12.82 Pneumonia due to coronavirus disease 2019; E66.2 Morbid (severe) obesity with alveolar hypoventilation; D72.819 Decreased white blood cell count, unspecified; E86.0 Dehydration; Z68.43 Body mass index [BMI] 50.0-59.9, adult; Z79.899 Other long term (current) drug therapy
CPT/HCPCS: 36415; 71046; 80053; 82728; 82947; 83036; 83615; 84145; 84702; 85025; 85379; 86140; 87040; 94640; 94760; G0378; J0456; J0696; J1100; J1170; J1650; J2270; J2405; J7030; J7050; U0003